=== PATIENT | female | born 1955 | race Caucasian/White ===

== ENCOUNTER 2020-11-19 09:37 | Outpatient (REF) | payer MEDICARE, SELFPAY ==
--- NOTE | ~2020-11-19 | US_ITS ---
EXAMINATION: US ABDOMEN COMPLETE CLINICAL INFORMATION: Right upper quadrant pain.?gallstone. COMPARISON: None TECHNIQUE: Real-time imaging of the abdominal viscera. FINDINGS: PANCREAS: The head and body the pancreas are normal. The tail is not well visualized due to bowel gas. ABDOMINAL AORTA: The proximal, mid, and distal segments are normal in caliber. INFERIOR VENA CAVA: Visualized portions are normal. LIVER: The liver is normal in size. The liver contour is normal. Liver echotexture may be slightly increased. No focal hepatic lesion. There is no intrahepatic biliary duct dilatation seen. GALLBLADDER: The gallbladder is physiologically distended without evidence of stones, polyps, wall thickening or pericholecystic fluid. COMMON BILE DUCT: Normal in caliber measuring 0.6 cm in diameter. RIGHT KIDNEY: Normal. No hydronephrosis. No renal calculi or focal parenchymal lesions. The kidney measures 10.0 cm in maximum dimension. LEFT KIDNEY: Normal. No hydronephrosis. No renal calculi or focal parenchymal lesions. The kidney measures 10.2 cm in maximum dimension. SPLEEN: Normal. The spleen measures 8.6 cm in maximum dimension. FREE FLUID: None. US/US abdomen complete IMPRESSION: Normal-appearing gallbladder. No gallstone seen. Question slightly echogenic liver. Limited visualization of the tail of the pancreas.
[2020-11-19 10:29] LABS: MANUAL DIFF FLAG NO
[2020-11-19 10:40] LABS: Basophils Percent Auto 0.5 % (0-2); Eosinophils Absolute Auto 0.7 X10*3/uL (0.0-0.4); Eosinophils Percent Auto 9.5 % (0-4); Hematocrit 40.2 % (37-47); Hemoglobin 13.4 g/dl (12.0-16.0); Imm Gran Abs Auto 0.04 X10*3/uL (0.00-0.03); Imm Gran Pct Auto 0.5 % (0.0-0.4); Lymphocytes Absolute Auto 2.4 X10*3/uL (1.2-4.9); Lymphocytes Percent Auto 31.3 % (20-40); Mean Corpuscular HGB Conc 33.3 g/dl (31.0-35.0); Mean Corpuscular Hemoglobin 33.3 pg (27.0-33.0); Mean Platelet Volume 9.6 fL (9.4-12.3); Monocytes Absolute Auto 0.5 X10*3/uL (0.1-1.2); Monocytes Percent Auto 6.4 % (2-11); Neutrophils Percent Auto 51.8 % (45-73); Platelet Count 283 X10*3/uL (160-400); Red Blood Count 4.02 X10*6/uL (4.20-5.50); White Blood Count 7.7 X10*3/uL (4.8-10.8)
[2020-11-19 11:21] LABS: Alanine Aminotransferase 18 U/L (0-31); Albumin Level 4.2 g/dL (3.5-5.0); Alkaline Phosphatase 71 U/L (39-117); Anion Gap 10 (12-20); Aspartate Amino Transferase 19 U/L (5-31); Bilirubin Total 0.5 mg/dL (0.0-1.0); Blood Urea Nitrogen 9 mg/dL (9-16); Calcium 8.8 mg/dL (8.4-10.2); Carbon Dioxide 28 mmol/L (22-29); Chloride 108 mmol/L (96-108); Cholesterol 238 mg/dL; Estimated Glomerular Filt Rate > 60; Gamma Glutamyl Transpeptidase 22 U/L (7-33); Glucose Fasting 89 mg/dL (60-99); HDL Cholesterol 81 mg/dL; LDL Cholesterol Calculated 128 mg/dl; Potassium 4.5 mmol/L (3.3-5.1); Sodium 141 mmol/L (135-145); Total Protein 7.2 g/dL (6.5-8.0); Triglycerides 145 mg/dL
[2020-11-19 11:28] LABS: Erythrocyte Sedimentation Rate 25 MM/HR (0-20)
== END 2020-11-19 09:38 | disposition home or self-care (01) ==
LOC: HO.US 09:37
PROVIDERS: Visit Provider Internal Medicine Medical Oncology
DX: R10.11 Right upper quadrant pain (principal)
CPT/HCPCS: 36415; 76700; 80053; 80061; 82977; 85025; 85652

== ENCOUNTER 2022-09-14 14:53 | Outpatient (REF) | payer MEDICARE, SELFPAY ==
--- NOTE | ~2022-09-14 | XR_ITS ---
EXAMINATION: XR SINUSES CLINICAL INFORMATION: Sinusitis COMPARISON: None TECHNIQUE: 3 views of the sinuses were obtained. FINDINGS: The paranasal sinuses are well-developed. No air-fluid levels. No radiographic evidence of acute sinusitis. There appears to be mild asymmetric opacity from mucosal thickening of the left lateral maxillary sinus. Otherwise, the paranasal sinuses are unremarkable. The mastoid air cells are well aerated. The calvarium is normal. XR/XR sinus min 3V IMPRESSION: There is likely mucosal thickening along the lateral wall of the left maxillary sinus. However, no air-fluid levels within the paranasal sinuses. No radiographic findings of acute sinusitis.
== END 2022-09-14 14:54 | disposition home or self-care (01) ==
LOC: HO.XRAY 14:53
PROVIDERS: PCP Internal Medicine Medical Oncology; Visit Provider Otolaryngology
DX: J32.9 Chronic sinusitis, unspecified (principal)
CPT/HCPCS: 70220

== ENCOUNTER 2024-11-28 11:51 | Outpatient (REF) | payer MEDICARE, SELFPAY ==
[2024-11-28 12:10] LABS: MANUAL DIFF FLAG NO
[2024-11-28 12:34] LABS: Basophils Absolute Auto 0.1 X10*3/uL (0.0-0.2); Basophils Percent Auto 0.8 % (0-2); Eosinophils Absolute Auto 0.3 X10*3/uL (0.0-0.4); Eosinophils Percent Auto 3.9 % (0-4); Hematocrit 42.8 % (37.0-47.0); Hemoglobin 14.8 g/dl (12.0-16.0); Imm Gran Abs Auto 0.08 X10*3/uL (0.00-0.03); Imm Gran Pct Auto 1.1 % (0.0-0.4); Lymphocytes Absolute Auto 1.6 X10*3/uL (1.2-4.9); Mean Corpuscular HGB Conc 34.6 g/dl (31.0-35.0); Mean Corpuscular Hemoglobin 36.4 pg (27.0-33.0); Mean Corpuscular Volume 105.2 fL (80.0-98.0); Mean Platelet Volume 9.3 fL (9.4-12.3); Monocytes Absolute Auto 0.5 X10*3/uL (0.1-1.2); Monocytes Percent Auto 6.3 % (2-11); Neutrophils Absolute Auto 4.7 x10*3/uL (2.0-8.3); Neutrophils Percent Auto 65.9 % (45-73); Platelet Count 209 X10*3/uL (160-400); Red Blood Count 4.07 X10*6/uL (4.20-5.50); Red Cell Distribution Width 13.2 % (11.0-16.0); White Blood Count 7.2 X10*3/uL (4.8-10.8)
[2024-11-28 13:04] LABS: Alanine Aminotransferase 56 U/L (0-31); Albumin Level 4.3 g/dL (3.5-5.0); Alkaline Phosphatase 81 U/L (39-117); Anion Gap 15 (12-20); Aspartate Amino Transferase 83 U/L (5-31); Bilirubin Total 0.8 mg/dL (0.0-1.0); Blood Urea Nitrogen 6 mg/dL (9-16); Calcium 9.8 mg/dL (8.4-10.2); Carbon Dioxide 28 mmol/L (22-29); Chloride 100 mmol/L (96-108); Cholesterol 237 mg/dL (<200); Estimated Glomerular Filt Rate > 60; Glucose Fasting 98 mg/dL (60-99); HDL Cholesterol 109 mg/dL (>40); LDL Cholesterol Calculated 112 mg/dL (<100); Potassium 4.7 mmol/L (3.3-5.1); Sodium 138 mmol/L (135-145); Total Protein 8.4 g/dL (6.5-8.0); Triglycerides 81 mg/dL (<150)
--- OUTSIDE RECORDS SUMMARY | 2024-11-28 14:57 | XMS_ITS ---
Author Organization [facility] Address [address] [place] [address] Care Team Providers Care Director Of Investigations Name Role Phone Shabbir Smith MD Primary Care Provider Unavailab Bettie Coello Unavailable [phone] Aguila Saenz Unavailable [phone] Allergies Allergen (clinical drug ingredient) Drug/Non Drug Allergy documented on EMR Reaction Allergy Type Onset Date Status aspirin Aspirin Unknown Drug Allergy Active REASON FOR VISIT Painful Toe(s), Open sore, Skin problem(s) Medications Medication SIG (Take, Route, Frequency, Duration) Notes Start Date End Date Status Iodosorb 0.9 % as directed External ly Apply to ulceration daily with dry sterile dressing for 30 days 09/15/2023 Active Cephalexin 500 MG 1 capsule Orally kaley ry 8 hrs for 10 days Active Feldene 20 MG 1 capsule with food Orally Once a day for 30 day(s) 12/01/2020 Not-Taking Ciclopirox Olamine 0.77 % 1 application to affected area Externally to feet Twice a day for 30 days Active Fluticasone Propionate 50 MCG/ACT Nasal for 60 Active Albuterol Sulfate HFA 108 (90 Base) MCG/ACT Inhalation for 28 A ctive Social History Tobacco Use: Social History Observation Description Date Details (start date - stop date) Former Smoker NA - NA Tobacco Use/Smoking Question Answer Notes Are you a: former smoker Additional Findings: Tobacco Non-User Current no n-smoker Alcohol Screen Question Answer Notes Did you have a drink contain ing alcohol in the past year? Yes How often did you have a dri nk containing alcohol in the past year? Monthly or less (1 point) How often did you have 6 or more drinks on one occasion in the past year? Less than monthly (1 point) Points 2 Interpretation Negative Tobacco use other than smoking: Question Answer Notes Are you an other tobacco user? 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) Active confirmed Response to treatment Vital Signs Height 5ft in 09/15/2023 Weight 138 lbs 09/15/2023 BMI 26.95 kg/m2 09/15/2023 Procedures Procedure Date Ordered Date Performed Result Body Sit e 51173-CYCTUHL SKIN/TISSUE 09/15/2023 N/A Encounters Encounter Location Date Provider Diagnosis [facility] [address] [address] 09/15/2023 Aguila Letty Pain in left toe(s) M79.675 ; Other hammer toe(s) (acquired), left foot M20.42 ; Arthritis of joint of lesser toe, left M19.072 ; 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 L97.522 and Cellulitis of toe of left foot L03.032 Assessments Encounter Date Diagnosis (ICD Code) Assessment Notes Treatment Notes Treatment Clinical Notes Section Notes 09/15/2023 Pain in left toe(s) (ICD-10 - M79.675) 09/15/2023 Other hammer toe(s) (acquired), left foot (ICD-10 - M20.42) 09/15/2023 Arthritis of joint of lesser toe, left (ICD-10 - M19.072) 09/15/2023 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 (ICD-10 - L97.522) Patient Educated with: WOUND CARE INSTRUCTIONS.p df (WOUND CARE INSTRUCTIONS.p df) 09/15/2023 Cellulitis of toe of left foot (ICD-10 - L03.032) Plan Of Treatment Medication Medication Name Sig Start Date Stop Date Notes Iodosorb 0.9 % as directed External ly Apply to ulceration daily with dry sterile dressing for 30 days 09/15/2023 Cephalexin 500 MG 1 capsule Orally every 8 hrs for 10 days Treatment Notes Assessment Notes 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 Patient Educated with: WOUND CARE INSTRUCTIONS.pdf (WOUND CARE INSTRUCTIONS.pdf) Pending Test Test Name Order Date X ray : Foot, left 3V 09/15/2023 23092-[id number] SKIN/TISSUE 09/15/2023 Next Appt Details Follow Up: prn, Reason: Procedure Notes * Category Sub-Category Detail Notes Debride skin and subQ Open wound ISCHEMIC: Physician of record performed open wound selective debridement of devitalized necrotic/nonviable soft tissue, fibrin, exudate, epidermis, dermis, thru skin and subcutaneous fat tissue, first 20 sq cm or less, using sharp dissection with sterile 15 blade, and/or tissue nippers. ANESTHESIA was accomplished TOPICALLY with Lidocaine Hydrochloride Jelly 2 percent, Sterile antibiotic dressing applied. Hemostasis was controlled through direct pressure. Post debridement measurements: 5mm x 5mm x 3mm. Character of the wound post debriement is stable (90144) Progress Notes * JASCAClemencia Val ADOB: (68 yo F)Acc No.[id number]:09/15/2023 Progress Note Patient:?Val Hickey Provider:?Aguila Saenz DPM :1955???Age:68 Y???Sex:Female D ate:09/15/2023 Address:[address] [place], [place] [address], [place], [place] Pcp:Shabbir Smith MD Subjective: * Chief Complaints: * ???Painful Toe(s)Open soreSk in problem(s) * HPI: ???Toe pain:?Nature:?tenderness.?Location:?Left foot , 4th toe , 5th toe.?Duration:?a year or more.?Course:?worse.?Aggrevated by:?any pressure, shoes.?Treatments:?rest/alter normal daily activity, change in shoes , bracing/splinting/padding , medication ( Ciclopirox ).?Skin problems:?Treatments:?medication ( Ciclopirox).?Possible Infection:?Nature:?redness , swelling.?Location:?5th toe , Left foot.?Duration:?several days.?Course:?worse.?Treatments:?none.? * ROS:?General/Constitutional:?Nausea?denies.?Vomiting?denies.?Hunger Thirst?denies.?Loss appetite?denies.?Chills?denies.?Fatigue?denies.?Fever?denies.?Night Sweats?denies.?Unexplained weight loss?denies.?Unexplained weight gain?denies.?HEENTM:?Dentures?denies.?Dizziness?denies.?Glasses/contacts?admits.?Retinopathy?de nies.?Blurred/double vision?denies.?TMJ?denies.?Discharge/drainage?denies.?Implants?denies.?Sore throat?denies.?Dental implants?denies.?Hard of hearing ?denies.?Difficulty chewing/swallowing/speaking?denies.?Nose bleeds?denies.?Sore mouth?denies.?Respiratory:?On Oxygen?denies.?Pneumonia/pleurisy?denies.?Bronchitis?denies.?Emphysema?denies.?C oughing?denies.?Cough blood?denies.?Shortness of breath?denies.?Wheezing?denies.?Cardiovascular:?Pacemaker?denies.?MVP?denies.?WPW?denies.?CHF?denies.?Heart attack?denies.?Septal defect?denies.?Rapid beat?denies.?Chest pain ?denies.?Atrial Fib.?denies.?Murmur/Palpitations?denies.?Gastrointestinal:?Hemorrhoids?denies.?Stomach/Abdominal pain?denies.?Dark blood stool?denies.?Irritable bowel ?denies.?Constipation?denies.?Diarrhea?denies.?Hematology:?Swelling?denies.?Clots?denies.?Varicose Veins?denies.?Bruising?denies.?Bleeding problem?denies.?Genitourinary:?Blood urine?denies.?Frequent/Painfu/urination/bladder control?denies.?Kidney stones?denies.?Infection (UTI)?denies.?Nephropathy?denies.?sex trans dis (STD)?denies.?Prostate?denies.?Musculoskeletal:?Hammertoes?admits.?Bunions?denies.?Back Pain?denies.?Muscle Cramps/ Resting?denies.?Muscle cramps / walking?denies.?Generalized aches and pains?denies.?Weakness?denies.?Integ.:?Ortiz?denies.?Scars?denies.?Corns/calluses?denies.?Ingrown nails?denies.?Painful nails?denies.?Open Sores?admits.?Rashes?denies.?Neurologic:?Difficulty sleeping?denies.?Brain disorder?denies.?Numbness?denies.?Balance trouble?denies.?Confusion?denies.?Fainting/blackouts?denies.?Tingling?denies.?Tr emors?denies.? * Medical History:? * Surgical History:? 11.21.85,03.29.89 * Hospitalization/Major Diagno stic Procedure:?No Hospitalization History. * Family History:?Mother: aliquentin e.?Father: .? * Social History:?Tobacco Use:?Tobacco Use/Smoking?Are you a:?former smoker ?Additional Findings: Tobacco Non-User?Current non-smoker ?Tobacco use other than smoking?Are you an other tobacco user??Yes Vape ???Drugs/Alcohol:?Drugs?Have you used drugs other than those for medical reasons in the past 12 months??Yes ?Marijuana??Yes ?Alcohol Screen?Did you have a drink containing alcohol in the past year??Yes ?How often did you have a drink containing alcohol in the past year??Monthly or less (1 point) ?How often did you have 6 or more drinks on one occasion in the past year??Less than monthly (1 point) ?Points?2 ?Interpretation?Negative ???Miscellaneous:?no Caffeine. ?Children: yes, 2. ?Exercise: yes, yoga, Babysitting. ?Marital status: . ?Occupation: Retired- [employer]/ [employer]. * Medications:?TakingAlbuterol Sulfate HFA 108 (90 Base) MCG/ACT Aerosol Solution Inhalation Fluticasone Propionate 50 MCG/ACT Suspension Nasal Ciclopirox Olamine 0.77 % Cream 1 application to affected area Externally to feet Twice a dayTaking Albuterol Sulfate HFA 108 (90 Base) MCG/ACT Aerosol Solution Inhalation Taking Fluticasone Propionate 50 MCG/ACT Suspension Nasal Taking Ciclopirox Olamine 0.77 % Cream 1 application to affected area Externally to feet Twice a dayNot-Taking/PRNFeldene 20 MG Capsule 1 capsule with food Orally Once a dayMedication List reviewed and reconciled with the patientNot-Taking/PRN Feldene 20 MG Capsule 1 capsule with food Orally Once a dayMedication List reviewed and reconciled with the patient * Allergies:?Aspirinyes[Allerg ies Verified] Objective: * Vitals:?Ht: 5ft, Wt:138, BMI :26.95, Shoe size: 7, Ht-cm: 152.4 cm, Wt-k.6 kg. * Examination: ???Orthopedic: ?MUSCLE STRENGTH:?5/5 all groups in a symmetrical fashion , B/L.?DIGITAL DEFORMITIES:?Digital contracture, PIPJ, 2-5 B/L, incompl-reducible with WB, or to push-up test, no over, nor underlapping , Reveals pain to palpation, T3, T4.?FOOTWEAR:? shoe gear properties exacerbate patients foot/toe deformity.?X-Rays - IMAGING REPORT: ?Clinical Indication(s):? Evaluate Biomechanical Deformity.?Views:? 3 views of Foot, AP, LO, MO, LEFT.?Findings:? normal bone and soft tissue density consistent for patients age and sex.?Digits:? show asymmetrical joint space narrowing at the PIPJ consistent with clinical finding of hammertoe deformity, show synostosis at the DIPJ.?Fracture:? Negative fractures identified.?Signs of Osteomyelitis?Absent.?Dermatologic: ?SKIN FINDINGS:? Skin shows sign(s) of, localized cellulitis without lymphangitis extending proximally to the level of the MPJ, T4 , Skin exam reveals normal texture, elasticity, and turgor. There are no masses.?ULCER:? LOCATION, LEFT, Medial, T4, SIZE, 5mm X 5mm X 3mm, BASE, fibro-granular, RIM, hyperkeratotic, UNDERMINING, mild, TRACKING, Sub Q with Fat layer exposed, DRAINAGE, serosanguineous, moderate, NECROTIC TISSUE, loosely-adherent, yellow slough, MALODOR, absent, CALOR, PREsent, ERYTHEMA, PREsent.?Vascular: ?DP PULSES:?2/4, B/L.?PT PULSES:?2/4, B/L.?CAPILLARY FILL TIME:?immediate, all digits, B/L.?SKIN TEMPERTURE GRADIENT OF THE LOWER EXTERMITIES:?warm to cool, proximal to distal, B/L.?HAIR GROWTH/TEXTURE/ELASTICITY/TURGOR:?normal, B/L.?PIGMENTATION:?normal, B/L.?EDEMA:?absent, B/L.?Neurological: ?SENSORY:?Neurological exam reveals intact sensorium, pain sensation normal, vibration sensation intact, pinprick sensation is normal in the lower extremities, Pt denies, anesthesia, burning, paresthesia, tingling, B/L.?DEEP TENDON REFLEXES:?Achilles, 2, B/L.?General Examination: ?GENERAL APPEARANCE:?Reveals a pleasant, alert, well-nourished, well- developed, well hydrated individual, who demonstrates proper attention to hygiene/body habitus, and is in no acute distress, Pt serves as own?historian for office visit today.?ORIENTED:?person, place, and time.? Assessment: * Assessment: 1.?Pain in left toe(s) - M79 .675 (Primary)?2.?Other hammer toe(s) (acquired), left foot - M20.42, Chronic problem, Worse (4)?3.?Arthritis of joint of lesser toe, left - M19.072?4.?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 - L97.522?5.?Cellulitis of toe of left foot - L03.032, Acute problem, Complicated w/ Multiple Tx Options(4),Dx New problem, Prognosis Uncertain (4),Rx Management (4)? Plan: * Treatment: 2.?Ischemic ulcer of left fo ot with fat layer exposed? Start Iodosorb Gel, 0.9 %, as directed, Externally, Apply to ulceration daily with dry sterile dressing, 30 days, 40, Refills 3.?Procedure: [id number] SKIN/TISSUE Notes: Patient Educated with: WOUND CARE INSTRUCTIONS.pdf (WOUND CARE INSTRUCTIONS.pdf)?? 3.?Cellulitis of toe of left foot? Start Cephalexin Capsule, 500 MG, 1 capsule, Orally, every 8 hrs, 10 days, 30 Capsule, Refills 0.?? * Procedures:?Debride skin and subQ:?Open wound?ISCHEMIC: Physician of record performed open wound selective debridement of devitalized necrotic/nonviable soft tissue, fibrin, exudate, epidermis, dermis, thru skin and subcutaneous fat tissue, first 20 sq cm or less, using sharp dissection with sterile 15 blade, and/or tissue nippers. ANESTHESIA was accomplished TOPICALLY with Lidocaine Hydrochloride Jelly 2 percent, Sterile antibiotic dressing applied. Hemostasis was controlled through direct pressure. Post debridement measurements: 5mm x 5mm x 3mm. Character of the wound post debriement is stable (27863).? * Procedure Codes:?10782 DEBRI DE SKIN/[id number] X-RAY EXAM OF LEFT FOOT 3V, Modifiers: 26 , LT * Preventive Medicine:? ??Counseling:?Discussion:?-14: Office or other outpatient visit for the evaluation and management of an established patient, which required a medically appropriate history and/or examination and MODERATE level of DECISION MAKING for: 1 OR MORE CHRONIC PROBLEM(S) THATS WORSENING, 2 STABLE CHRONIC PROBLEMS, A NEWLY DIAGNOSED PROBLEM WITH UNCERTAIN PROGNOSIS, AN ACUTE COMPLICATED INJURY WITH MULTIPLE TREATMENT OPTIONS, OR AN ACUTE PROBLEM WITH ACCOMPANYING SYSTEMIC SYMPTOMS, THAT POSE(S) A MODERATE RISK OF MORBIDITY. THIS CONDITION MAY ALSO INCLUDE RX DRUG MANAGEMENT, OR A DECISON FOR MINOR SURGERY. The visit on the day of the encounter encompassed interpreting the data and educating the patient as to the nature of their condition, treatment options available according to their individual PMH, meds, allergies, and overall health/living conditions, as well as any potential risks or complications that may occur from a failure to adhere to, and participate in, the recommended course of therapy. The discussion included a complete verbal, and/or written explanation of the examination results, any x-rays taken, the proposed diagnosis, and outline of the treatment plan. A schedule for future care needs was also explained. The patient verbalized an understanding of the instructions at this time and agreed to be an active participant in their treatment. If the patient should think of any questions or concerns after the visit, I have encouraged the patient to call the office.?Consult:?The Pt. was counseled on the diagnosis, treatment options, and the need for a, Podiatry Surgical Consult for Hammertoe correction, Left foot, Pt indicated understanding the recommendations and accepts this treatment plan. The patient would like to make their appt themself.?Cellulitis/Lymphangitis?The Pt. was counseled on the diagnosis, etiology, treatment options, and importance for adherence to recommendations regarding the treatment for Cellulitis. Abx were Rxed to address the cellulitis. The advantages and disadvantages of an antibiotic medication, along with its side effects, were discussed with the patient to their comprehended satisfaction. Patient questions re: use, dosage, and possible pharmacutical interactions were reviewed and the answers clearly understood. If the condition should worsen while taking the antibiotics as directed, it was recommeded that the patient call the office immediately or seek emergency medical care. The patient verbally confirmed a full understanding of the above information.?Digital Surgery:?Digital surgery was discussed with the patient, including the risks of surgery(below), vs not having surgery (persistent pain, deformity, risk for skin ulceration/infection, loss of toe), the potential surg complications, the anesthesia, and the usual post-op course. No guarentees were given. We discussed the potential procedure complications including, but not limited to: pain, swelling, bleeding, scarring, numbness, infection, delayed/non healing, floppy/unstable/shorthened toe, recurrence, failure of the procedure, overcorrection leading to plantarflexed/downward positioned toe, recurrence, need for further surgery, as well as the possibility for loss of the toe itself. We discussed the use of local anesthesia, and the usual post-op course for healing. No guarentees were given. The patient verbally indicated a full understanding of the above conversation, and any other of their questions were answered to their satisfaction. Alternatives to the procedure were also discussed, including conservative care. I also discussed the usual post-operative course and gave no guarantees regarding outcome, I discussed surgery for a hammertoe by digital arthroplasty and neighboring condylectomy.?Digital Treatment:?I explained to the patient the possible etiologies of Hammertoes, including genetics/foot type/shoegear/activity level/exercise routine and the risks/benefits of all the different treatment options for their pain including: No treatment at all, Rest, Ice, New/supportive/wider/deeper Shoegear, Digital Padding/Strapping/Taping/Bracing/Gel protective sleeves, Foot/Ankle AFO Bracing, Stretching exercises, Deep Tissue Massage, Arch support/shoe inserts with splay metatarsal padding, and Custom orthoses. I insisted that any digital devices be removed daily and not worn overnight for safety. The patient is to carefully examine the toes daily for any skin irritation while using any splinting or padding device. The advantages and disadvantages of each option were discussed and the patients questions re: shoegear, padding, custom vs prefabricated inserts, activity level, and consistency in home treatment regimens for optimal success were answered to their verbally confirmed satisfaction.?Shoe Gear Counseling:?The patient and I reviewed the types of shoes they should be wearing. My recommendation included obtaining a well-fitted shoe with a good supportive, non-foldable nor twistable sole, plenty of toe/room for the forefoot, and proper arch support. Based on todays examination, I recommended the patient look for new shoes, by having their feet professionally measured. We discussed that generally the best time of the day for a shoe fitting is the afternoon. Different shoes types and brands to best match the patients occupation and vocation were discussed. Specific brand selection will be up to the patient, their individual foot condition/deformities, and fit. The patient and I reviewed the standard new shoe break in period by wearing them for a few hours a day while checking for redness or sores as wear time is increased. The patient verbally confirmed to understanding the information discussed.?Ulcer:?A detailed plan of care was reviewed with the patient. We emphasized the fact that the patient takes on an active participating role in the treatment process and emphasized to them that they are an included, valued, and important member of the wound healing team in order to reach an expedient successful outcome. The patient agreed to follow their medically recommended diet while increasing their protein intake if safely able to do so, maintain proper bodily hydaration, abide by weight-bearing restrictions at all times, quit all current smoking habits if any, and diligently follow any/all dressing change instructions. It was clearly made known to the patient that if they fail to do their part, they will likely extend their course of treatment as well as possibly increase their risk of adverse events including amputation. The patient was instructed on importance of proper wound care consisting of pressure reduction, and proper maintainance of a moist wound environment. The patient is to cleanse the wound with warm soapy water/peroxide/saline, or betadine BID based on product availability. The patient is to apply ( Rx Iodosorb gel, ) Antibiotic to the wound and cover with a DSD as directed. The patient was instructed to change dressings according to orders, or PRN saturation, leaks. The patient was instructed to monitor and report any signs or symptoms of infection or any untoward reactions. Precautions Taken: Offloading/Pressure reduction via rest/ limited activity to essential to daily life only, cane, shoe modification, accommodative padding, sharp debridement, and take/apply medication as directed, Debridement frequency as indicated.? * Follow Up:?prn * Images: * Sign off status: Completed true * Provider:Clarence Saenz DPM Date:?2022 Generated for Leelee thomas/María Elena/Deshawn on:?11/28/2024 02:57 PM EST History and Physical Notes * HPI (History of Present Illness) Category Sub-Category Detail Notes Category Not es Toe pain Nature: tenderness Location: Left foot , 4th toe , 5th toe Duration: a year or more Course: worse Aggravated by: any pressure, shoes Treatments: rest/alter normal da colleen activity, change in shoes , bracing/splinting/padding , medication ( Ciclopirox ) Skin problems Treatments: medication ( Ciclopirox) Possible Infection Location: 5th toe , Left foot Duration: several days Nature: redness , swelling Course: worse Treatments: none Examination Category Sub-Category Detail Notes Category Not es Neurological SENSORY: Neurological exa m reveals intact sensorium, pain sensation normal, vibration sensation intact, pinprick sensation is normal in the lower extremities, Pt denies, anesthesia, burning, paresthesia, tingling, B/L DEEP TENDON REFLEXES: Achilles, 2/4, B/L Dermatologic SKIN FINDINGS: Skin shows sign( s) of, localized cellulitis without lymphangitis extending proximally to the level of the MPJ, T4 , Skin exam reveals normal texture, elasticity, and turgor. There are no masses ULCER: LOCATION, LEFT, Medi al, T4, SIZE, 5mm X 5mm X 3mm, BASE, fibro-granular, RIM, hyperkeratotic, UNDERMINING, mild, TRACKING, Sub Q with Fat layer exposed, DRAINAGE, serosanguineous, moderate, NECROTIC TISSUE, loosely-adherent, yellow slough, MALODOR, absent, CALOR, PREsent, ERYTHEMA, PREsent Orthopedic FOOTWEAR: shoe gear proper ties exacerbate patients foot/toe deformity DIGITAL DEFORMITIES: Digital contracture , PIPJ, 2-5 B/L, incompl-reducible with WB, or to push-up test, no over, nor underlapping , Reveals pain to palpation, T3, T4 MUSCLE STRENGTH: 5/5 all groups in a symmetrical fashion , B/L General Examination GENERAL APPEARANCE: Reveals a pleasant, alert, well- nourished, well-developed, well hydrated individual, who demonstrates proper attention to hygiene/body habitus, and is in no acute distress, Pt serves as own historian for office visit today ORIENTED: person, place, and t esther Vascular DP PULSES (B): 2/4, B/L PT PULSES (B): 2/4, B/L CAPILLARY FILL TIME: immediate, all digi ts, B/L TEMPERTURE GRADIENT (C): warm to cool, p roximal to distal, B/L TROPHIC CONDITION-TEXTURE/ELASTICITY/TURGOR/HAIR GROWTH (B): normal, B/L EDEMA (C): absent, B/L PIGMENTATION: normal, B/L X-Rays - IMAGING REPORT Findings: normal b one and soft tissue density consistent for patients age and sex Fracture: Negative fractures i dentified Signs of Osteomyelitis Absent Digits: show asymmetrical eduin int space narrowing at the PIPJ consistent with clinical finding of hammertoe deformity, show synostosis at the DIPJ Views: 3 views of Foot, AP, LO, MO, LEFT Clinical Indication(s): Evaluate Biomech anical Deformity
--- OUTSIDE RECORDS SUMMARY | 2024-11-28 14:57 | XMS_ITS | Patient Health Record ---
[facility] Address [address] [place] [place] [address] Care Team Providers Care Miller Wood Flour Name Role Phone Shabbir Smith MD Primary Care Provider Unavailab Bettie Coello Unavailable [phone] Allergies Allergen (clinical drug ingredient) Drug/Non Drug Allergy documented on EMR Reaction Allergy Type Onset Date Status aspirin Aspirin Unknown Drug Allergy Active Reason For Referral No Information Medications Medication SIG (Take, Route, Frequency, Duration) Notes Start Date End Date Status Feldene 20 MG 1 capsule with food Orally Once a day for 30 day(s) 12/01/2020 Not-Taking Albuterol Sulfate HFA 108 (90 Base) MCG/ACT Inhalation for 28 A ctive Cephalexin 500 MG 1 capsule Orally kaley ry 8 hrs for 10 days Not-Taking Iodosorb 0.9 % as directed External ly Apply to ulceration daily with dry sterile dressing for 30 days 09/15/2023 Active Fluticasone Propionate 50 MCG/ACT Nasal for 60 Active Ciclopirox Olamine 0.77 % 1 application to affected area Externally to feet Twice a day for 30 days Not-Taking Immunizations Vaccine Route Administration Date Status Comme nts COVID-19 Pfizer BioNTech Vaccine Unknown 12/03/2020 Administered Second Dose: 12/24/2020 Social History Tobacco Use: Social History Observation [...] Problem Acquired hammer toe of left foot (7969006518850701 ) Other hammer toe(s) (acquired), left foot (M20.42) Active confirmed Problem Localized, primary osteoarthritis of the ankle and/or foot (122446098) Arthritis of joint of lesser toe, left (M19.072) Active confirmed Problem 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) Active confirmed Response to treatment Plan Of Treatment Pending Test Test Name Order Date X ray : Foot, left 3V 02/09/2022 X ray : Foot, left 3V 09/15/2023 [id number] SKIN/TISSUE 09/15/2023 Insurance Providers Payer Name Payer Address Payer Phone Subscriber Number Group Number Insured Name Patient Relationship to Insured Coverage Start Date Coverage End Date [employer] [address] [place] [address] [phone] [id number] Val Hickey Self - patient is the insured Medical (General) History Medical History History ICD Code asthma Back,Hip,and Knee pain Hepatitis Measles Mumps Chicken pox Transfusions Surgical History Surgery Date(Month/Year) 2..86,6.89
== END 2024-11-28 11:52 | disposition home or self-care (01) ==
LOC: HO.LAB 11:51
PROVIDERS: PCP Internal Medicine Medical Oncology; Visit Provider Internal Medicine Medical Oncology
DX: E78.5 Hyperlipidemia, unspecified (principal); E66.3 Overweight
CPT/HCPCS: 36415; 80053; 80061; 85025

== ENCOUNTER 2025-09-08 22:58 | Emergency (ER) | payer MEDICARE, SELFPAY ==
[2025-09-08 23:01] VITALS: BP 174/84; PULSE 84; RESP 16; TEMP 36.4; O2SAT 94; BMI 27.1
--- NOTE | 2025-09-08 23:15 | ECG_ITS ---
Test Reason : LEFT HAND PAIN Blood Pressure : */* mmHG Vent. Rate : 81 BPM Atrial Rate : 81 BPM P-R Int : 176 ms QRS Dur : 86 ms QT Int : 396 ms P-R-T Axes : 24 -18 33 degrees QTcB Int : 460 ms Normal sinus rhythm Normal ECG When compared with ECG of 14-Apr-2015 18:18, T wave inversion now evident in Anterior leads QT has lengthened Referred By: Generic ED Physician Electronically Signed By: AMY RIVAS MD
[2025-09-08 23:38] LABS: MANUAL DIFF FLAG NO
[2025-09-08 23:40] LABS: Hematocrit 39.7 % (37.0-47.0); Hemoglobin 14.0 g/dl (12.0-16.0); Imm Gran Abs Auto 0.05 X10*3/uL (0.00-0.03); Imm Gran Pct Auto 0.5 % (0.0-0.4); Lymphocytes Absolute Auto 1.7 X10*3/uL (1.2-4.9); Mean Corpuscular HGB Conc 35.3 g/dl (31.0-35.0); Mean Corpuscular Hemoglobin 37.2 pg (27.0-33.0); Mean Corpuscular Volume 105.6 fL (80.0-98.0); NRBC Abs Auto 0.000 X10*3/uL (0.0-0.012); NRBC Pct Auto 0.0 /100WBC (0.0-0.2); Platelet Count 223 X10*3/uL (160-400); Red Blood Count 3.76 X10*6/uL (4.20-5.50); White Blood Count 9.1 X10*3/uL (4.8-10.8)
[2025-09-08 23:55] LABS: Anion Gap 18 (12-20); Blood Urea Nitrogen 9 mg/dL (9-16); Calcium 9.2 mg/dL (8.4-10.2); Carbon Dioxide 22 mmol/L (22-29); Chloride 102 mmol/L (96-108); Creatinine Clr Calc Pharmacy 75.7; Estimated Glomerular Filt Rate > 60; Potassium 3.9 mmol/L (3.3-5.1); Sodium 138 mmol/L (135-145)
--- OUTSIDE RECORDS SUMMARY | 2025-09-09 00:10 | XMS_ITS | Clinical Summary ---
Author Organization [address] Address [address] [place] [phone] Phone Care Team Providers Care Pharmacology Teacher Name Role Phone Shabbir Smith MD Primary Care Provider [phone] Allergies Active Allergy Reactions Criticality Noted Date Comments Animal Dander 08/20/2025 Aspirin Anaphylaxis,Wheezing High 03/10/2017 Codeine 01/29/2021 No reaction documented in transfer records Ibuprofen 01/29/2021 No reaction documented in transfer records Sertraline 08/20/2025 Streptomycin 01/29/2021 Medications albuterol HFA (PROAIR HFA ; PROVENTIL HFA ; VENTOLIN HFA) 90 mcg/actuation inhaler Inhale 2 puffs by mouth every 4 (four) hours if needed. 9 Active fluticasone propionate (FLONASE) 50 mcg/actuation nasal spray Administer 1 spray into each nostril 1 (one) time each day. Active Encounters Date Type Department Care Team Description 08/20/2025 Telephone Gastroenterology - [address] [place] [id number] Virgil Salinas MD from Last 3 Months Surgical History Surgery Date Site/Laterality Comments SECTION PROCEDURE: HISTORICAL DELIVERY TONSILLECTOMY PROCEDURE: HISTORICAL TONSILLECTOMY; COMMENT: and Adenoidectomy Medical History Medical History Date Comments Asthma DX:Asthma Hypertension 01/29/2021 DX:Hypertension Sciatica 01/29/2021 DX:Sciatica Bone spur of inferior portio n of calcaneus 01/29/2021 DX:Bone spur of inferior por tion of calcaneus Cholecystitis 01/29/2021 DX:Cholecystitis Environmental and seasonal allergies 04/26/2019 DX:Environmental and seasonal allergies Essential hypertension 01/29/2021 DX:Essent ial hypertension GERD (gastroesophageal reflu x disease) 04/26/2019 DX:GERD (gastroesophageal re flux disease) Hyperlipidemia 01/29/2021 DX:Hyperlipidemi a Osteoporosis 01/29/2021 DX:Osteoporosis Overweight (BMI 25.0-29.9) 04/26/2019 DX:Ov erweight (BMI 25.0-29.9) Plantar fasciitis 01/29/2021 DX:Plantar fas ciitis Generalized osteoarthritis DX:Ge neralized osteoarthritis History of hepatitis C virus infection 01/29/2021 DX:History of hepatitis C vi maurice infection Family History Medical History Relation Name Comments Other: Cardiac disease Father Asthm a Ovarian cancer Maternal Grandmother Relation Name Status Comments Father Maternal Grandmother Social History Tobacco Use Types Packs/Day Years Used Date Smoking Tobacco: Former Smokeless Tobacco: Never Alcohol Use Standard Drinks/Week Comments Yes 0 (1 standard drink = 0.6 oz pur e alcohol) Comments Unknown Sex and Gender Information Value Date Recorded Sex Assigned at Not on file Legal Sex Female 7:39 AM EST Gender Identity Not on file Sexual Orientation Not on file Plan of Treatment Health Maintenance Due Date Last Done Comments Breast Cancer Screening 1955 Colorectal Cancer Screening: Colonoscopy 1955 DTaP,Tdap,and Td Vaccines (1 - Tdap) 1973 Pneumococcal Vaccine: 50+ Ye ars (1 of 2 - PCV) 1973 RSV Immunization Adult Patie nts (1 - Risk 50-74 years 1-dose series) 2004 Zoster Vaccines (1 of 2) 2004 Depression Screening 10/03/2024 COVID-19 Vaccine (1 - 2024-2 6 season) 2025 Influenza Vaccine (#1) 2025 Cholesterol Screening (Lipid Panel) 08/20/2025 Falls Risk Assessment 08/20/2025 Hepatitis C Screening 08/20/2025 Hypertension/CHF/CAD Annual BMP Blood Test 08/20/2025 Medicare Annual Wellness Visit 08/20/2025 Osteoporosis Screening (Bone Density Screening) 08/20/2025 Social Influencers of Health Screening 08/20/2025 HIB Vaccines Aged Out No longer eligi ble based on patient's age to complete this topic HPV Vaccines Aged Out No longer eligi ble based on patient's age to complete this topic Hepatitis A Vaccines Aged Out No long er eligible based on patient's age to complete this topic Hepatitis B Vaccines Aged Out No long er eligible based on patient's age to complete this topic IPV Vaccines Aged Out No longer eligi ble based on patient's age to complete this topic MMR Vaccines Aged Out No longer eligi ble based on patient's age to complete this topic Meningococcal ACWY Vaccine Aged Out N o longer eligible based on patient's age to complete this topic Meningococcal B Vaccine Aged Out No l onger eligible based on patient's age to complete this topic RSV Immunization Patients Un diego 20 months Aged Out No longer eligible b ased on patient's age to complete this topic Varicella Vaccines Aged Out No longer eligible based on patient's age to complete this topic Insurance [employer] MED[employer]ARE [employer]VANTAGE Care Teams Pharmacology Teacher Relationship Specialty Start Date End Date Shabbir Smith MD [address] [facility] [address] [place] [id number] PCP - General Oncology 08/20/25
--- NOTE | 2025-09-09 04:04 | PC.NURSE ---
Late entry of [id number]. Patient previously brought back to bed 6h where she was noted to be awake, alert, calm and cooperative, often times moaning out in discomfort and saying oh god and asking when she would be seen. the pt exhibited no s/s of distress during her stay in the hallway space. At one point her primary RN found her in the room of another patient's and kindly asked that she remain in her own care space and not enter rooms of other patients. The pt was visibly upset and stated he asked me to car pick up driver his phone off the floor before returning back to her care space in 6h. The pt at no point and time appeared to display any s/s of respiratory distress, her gait was even and steady and she appeared to be mentating appropriately. At approx 0130, staff made this mud analysis well logging operator aware that the pt was trying to break down the door in an attempt to leave the ED. This RN went to the ED/Waiting room doors where the patient was noted to be standing with security, she was asked if she wanted to wait for a provider to see her regarding her hand at which time she replied No adding that she felt short of breath and need my inhaler which is in my car . The pt was speaking in full/complete sentences without resp distress noted. This RN offered to give this patient a breathing treatment at the bedside to which she again declined. This RN once again confirmed that the pt did not want to be seen and badged her out of the department as she ambulated out of the department with even and steady gait and without any outward expressions of discomfort.
== END 2025-09-09 01:30 | disposition left against medical advice (07) ==
PROVIDERS: Emergency Provider Emergency Medicine; PCP Internal Medicine Medical Oncology
DX: M79.642 Pain in left hand (principal); Z53.21 Procedure and treatment not carried out due to patient leaving prior to being seen by health care provider
CPT/HCPCS: 36415; 80048; 85025; 93005; 99283

== ENCOUNTER → 2025-09-08 23:15 | Outpatient (BNV) | payer MEDICARE, SELFPAY | PROVIDERS: Emergency Provider Emergency Medicine; PCP Internal Medicine Medical Oncology; Visit Provider Internal Medicine Cardiovascular Disease | DX: M79.642 Pain in left hand (principal) | CPT/HCPCS: 93010 ==

== ENCOUNTER 2025-09-12 15:41 | Outpatient (REF) | payer MEDICARE, SELFPAY ==
--- NOTE | ~2025-09-12 | XR_ITS ---
CLINICAL HISTORY: PAIN LEFT HAND 3 view left hand Comparison: None provided Findings: No fractures or dislocations. Mild scattered degenerative changes mostly within the interphalangeal joints. There is also mild degenerative change at the 3rd metacarpophalangeal joint, and triscaphe joint. No erosions. No radiopaque foreign body. IMPRESSION: Scattered degenerative changes. No acute fracture. This document has been electronically signed by: Zackary Monroe MD on 09/12/2025 22:02:19
== END 2025-09-12 15:42 | disposition home or self-care (01) ==
LOC: HO.HMGCX 15:41
PROVIDERS: PCP Internal Medicine Medical Oncology; Visit Provider Physician Assistant Medical
DX: M79.642 Pain in left hand (principal)
CPT/HCPCS: 73130; 99212

== ENCOUNTER 2025-09-12 15:41 | Outpatient (AMB) | payer MEDICARE, SELFPAY ==
--- OUTSIDE RECORDS SUMMARY | 2024-04-19 09:58 | XMS_ITS ---
Author Organization Shabbir Smith III, MD Address [address] [place] [address] [place] [address] Care Team Providers Care To[employer] Games Hand Finisher Name Role Phone Dr. Shabbir Smtih III Primary Care Provider REASON FOR VISIT Mammo order Social History Sex Assigned At : Social History Observation Description Sex Assigned At Female Encounters Encounter Location Date Provider Diagnosis Shabbir Smith III, MD [address] [place] [address] [place] [address] 04/19/2024 Shabbir Smith Screening due Z13.9 Assessments Encounter Date Diagnosis (ICD Code) Assessment Notes Treatment Notes Treatment Clinical Notes 04/19/2024 Screening due (ICD-10 - Z13.9) Plan Of Treatment Pending Test Test Name Order Date MAMMOGRAM DIGITAL BILATERAL SCREEN 04/19 Next Appt Details Provider Name:Shabbir Smith , 02/14/2026 04:00:00 PM, [address] [place] [address] [place], [address], Provider Name:Shabbir Simth , 08/19/2026 04:00:00 PM, [address] [place] [address] [address], [place], [address], Progress Notes * Farzaneh HICKEYGenieB:1955 (69 yo F)Acc No.[id number]:04/19/2024 Patient: Val Cali :1955 A ge:69 Y S ex:Female Address:[address] [place] [address], [facility] , [place] [address] Subjective: * Chief Complaints: * M ammo order * Medical History: * Surgical History: * Hospitalization/Major Diagno stic Procedure: * Medications: Objective: Assessment: * Assessment: 1. S creening due - Z13.9 Plan: * Treatment: * Procedure Codes: * true * Date: Generated for Leelee thomas/María Elena/eTransmitting on: 11/13/2024 11:04 PM EST
--- OUTSIDE RECORDS SUMMARY | 2024-10-30 09:30 | XMS_ITS ---
Author Organization Shabbir Smith III, MD Address [address] [place] [address] Care Team Providers Care Acetylene Cylinder Packing Mixer Name Role Phone Dr. Shabbir Smith III Primary Care Provider [phone] Allergies Allergen (clinical drug ingredient) Drug/Non Drug Allergy documented on EMR Reaction Allergy Type Onset Date Status sertraline Sertraline Unknown Drug Allergy Activ e ibuprofen Ibuprofen Unknown Drug Allergy Active Codeine Phosphate Unknown Drug Allergy Active aspirin Aspirin Anaphylaxis-Stre ptomycin Drug Allergy Active Results Component Value Reference Range Notes MM tomosynthesis screening B I Reviewed date:11/10/2024 07:03:12 AM Interpretation: Performing Lab: Notes/Report: REASON FOR VISIT Intolerant of sertraline, Overdue for Annual CASUALTY UNDERWRITER, History of back pain, Allergies, Osteoporosis, Hyperlipidemia, Asthma Medications Medication SIG (Take, Route, Frequency, Duration) Notes Start Date End Date Status Erin Quigley - as directed PO use with inhaler as directed 03/22/2019 Active ProAir HFA 108 (90 Base) MCG/ACT INHALE 2 PUFFS BY MOUTH EVERY 4 HOURS FOR 28 DAYS Inhalation every 4 hrs Active Fluticasone Propionate 50 MCG/ACT INSTILL 1 SPRAY INTO EACH NOSTRIL ONCE DAILY 60 Active Metoprolol Tartrate 25 MG 1 tablet with food Orally once a day Active Ketoconazole 2 % 1 application Solar Installer ally twice a day for 21 days 10/30/2024 01/22/2025 Active Social History Tobacco Use: Social History Observation Description Date Details (start date - stop date) Former Smoker NA - NA Sex Assigned At : Social History Observation Description Sex Assigned At Female Tobacco Use/Smoking Question Answer Notes Patient is a former smoker How long has it been since you last smoked? 1-5 years Additional Findings: Tobacco Non-User Ex-cigaret te smoker Problems Problem Type SNOMED Code ICD Code Onset Dates Problem Status W/U Status Risk Notes Problem Age-related osteoporosis (210469618) Age-related osteoporosis without current pathological fracture (M81.0) Active confirmed She is known to have osteoporosis by bone density measurement.A bone density was ordered. By my office in [facility] of this year but the result is not available. Mammogram ordered the same date was done at [facility]. She will need a bone density. I referred her back to CASUALTY UNDERWRITER. She is not taking calcium but is taking vitamin D through a multiple vitamin. I recommended she take 500 mg of calcium carbonate twice a day and 1000 units of vitamin D3 once a day. A bone density has been ordered. She is a candidate for alendronate. Problem 081640882 Other low back pain (M54.59) Active confirmed Problem 492917106 Moderate persistent asthma, unspecified whether complicated (J45.40) Active confirmed She was not wheezing today. Her medication is up-to-date. Vital Signs Temperature 97.9 degrees Fahrenheit 10/30/19 25 Blood pressure systolic 140 mm Hg 10/30/19 25 Blood pressure diastolic 86 mm Hg 025 Heart Rate 93 /min 10/30/2024 Height 60 in 10/30/2024 Weight 130 lbs 10/30/2024 BMI 25.39 kg/m2 10/30/2024 Encounters Encounter Location Date Provider Diagnosis Shabbir Smith III, MD [address] [place] [address] [address] [place], [place] [address] 10/30/2024 Shabbir Smith Moderate persistent asthma, unspecified whether complicated J45.40 ; Age-related osteoporosis without current pathological fracture M81.0 ; Hyperlipidemia E78.5 ; Overweight E66.3 ; Encounter for screening mammogram for malignant neoplasm of breast Z12.31 ; Other low back pain M54.59 and Former smoker Z87.891 Assessments Encounter Date Diagnosis (ICD Code) Assessment Notes Treat ment Notes Treatment Clinical Notes 10/30/2024 Moderate persistent asthma, unspecified whether complicated (ICD-10 - J45.40) She was not wheezing today. Her medication is up-to-date. 10/30/2024 Age-related osteoporosis without current pathological fracture (ICD-10 - M81.0) She is due for a bone density examination, which we have ordered. She was instructed to take 500 mg of calcium twice a day as well as 1000 units of vitamin D. 10/30/2024 Hyperlipidemia (ICD-10 - E78.5) Comprehensive blood work with a fasting lipid profile has been ordered to be done in the near future. 10/30/2024 Overweight (ICD-10 - E66.3) She has lost substantial weight since her last visit over a year ago. She is only slightly overweight. We discussed her diet and nutrition. We made a plan to reduce her body mass index to the middle of the normal range. 10/30/2024 Encounter for screening mammogram for malignant neoplasm of breast (ICD-10 - Z12.31) An annual screening mammogram has been ordered. 10/30/2024 Other low back pain (ICD-10 - M54.59) 10/30/2024 Former smoker (ICD-1 0 - Z87.891) She is not currently smoking. We have discussed plans for prevention of relapse in times of stress and illness. Plan Of Treatment Medication Medication Name Sig Start Date Stop Date Notes Erin Quigley - as directed PO use with inhaler as directed 03/22/2019 ProAir HFA 108 (90 Base) MCG/ACT INHALE 2 PUFFS BY MOUTH EVERY 4 HOURS FOR 28 DAYS Inhalation every 4 hrs Fluticasone Propionate 50 MCG/ACT INSTILL 1 SPRAY INTO EACH NOSTRIL ONCE DAILY 60 Metoprolol Tartrate 25 MG 1 tablet with food Orally once a day Ketoconazole 2 % 1 application Solar Installer ally twice a day for 21 days 10/30/2024 01/22/2025 Pending Test Test Name Order Date PROFILE, FASTING (COMPREHENSIVE METABOLI C) 10/30/2024 BONE DENSITY DEXA 10/30/2024 CBC WITH AUTO DIFF 10/30/2024 Lipid Panel 10/30/2024 Next Appt Details Follow Up: 6 Weeks, Reason: Pre Op Clearance, Cataract Surgery Provider Name:Shabbir Michelne , 02/14/2026 04:00:00 PM, [address] [place] [address] [address], [place], [address], Provider Name:Shabbir Michelne , 08/19/2026 04:00:00 PM, [address] [place] [address] [address], [place], [address], Progress Notes * Farzaneh HICKEYGenieB:1955 (69 yo F)Acc No.[id number]:10/30/2024 Progress Notes Patient: Val LAWRENCE Provider: Dali Smith MD :1955 A ge:69 Y S ex:Female Date:10/30/2024 Address:[address] [place] [address], [address], [place] Subjective: * Chief Complaints: * I ntolerant of sertralineOverdue for Annual GYNHistory of back painAllergiesOsteoporosisHyperlipidemiaAsthma * HPI: C OVID-19 Screening: Questions H ave you had any new onset fever, chills, cough, congestion, sore throat, shortness of breath, muscle aches? 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 The patient also reported experiencing unpleasant side effects from Sertraline, which led her to switch to Zoloft. She also mentioned having urinary incontinence and needing to wear a pad all the time. The patient also reported having cataracts and is scheduled for LASIK surgery. She is going to have comprehensive blood work and a bone density test. She was referred to CASUALTY UNDERWRITER. X-rays off her back were ordered. A followup visit was given to her. She will continue on Zoloft. * ROS: G eneral/Constitutional: pain L ow back pain. C hills d enies. F atigue?admits. F ever d enies. E NT: Decreased hearing d enies. R espiratory: Cough d enies. C ardiovascular: Chest pain with exertion d enies. D yspnea on exertion?denies. S hortness of breath d enies. G astrointestinal: Constipation o ccasional. D ecreased appetite d enies. D iarrhea d enies. H eartburn d enies. N ausea d enies. R ectal bleeding d enies. V omiting d enies. H ematology: bruising d enies. p etechiae d enies. S wollen glands n one have been noted. G enitourinary: Frequent urination d enies. M usculoskeletal: Muscle aches d enies. P ainful joints d enies. S ciatica d enies. W eakness d enies. S kin: Itching d enies. R chantell d enies. S kin lesion(s)?denies. N eurologic: Difficulty speaking d enies. D izziness d enies.?Headache d enies. L ow back pain t hat is new. P sychiatric: Depressed mood d enies. * Medical History: * Surgical History: 2 C-sections * Hospitalization/Major Diagno stic Procedure: D enies Past Hospitalization * Family History: F ather: 58 yrs, cardiac disease, asthma. M other: alive. C hildren: alive.?Son(s): alive. D aughter(s): alive. 3 brother(s) , 2 sister(s) . 2 son(s) - healthy. .? There is no family history of breat cancer, ovarian cancer, pancreatic cancer or prostate cancer. * Social History: T obacco Use: T obacco Use/Smoking P atient is a f ormer smoker H ow long has it been since you last smoked??1-5 years A dditional Findings: Tobacco Non-User E x-cigarette smoker S he was born in [place]. She has been 20 years. She has 2 boys. She worked at a [employer] company with no toxic exposures and retired in the summer of 2016. * Medications: T akingOptiChamber Soraida - Miscellaneous as directed PO use with inhaler as directed ProAir HFA 108 (90 Base) MCG/ACT Aerosol Solution INHALE 2 PUFFS BY MOUTH EVERY 4 HOURS FOR 28 DAYS Inhalation every 4 hrs Fluticasone Propionate 50 MCG/ACT Suspension INSTILL 1 SPRAY INTO EACH NOSTRIL ONCE DAILY 60 Metoprolol Tartrate 25 MG Tablet 1 tablet with food Orally once a day Taking OptiChamber Soraida - Miscellaneous as directed PO use with inhaler as directed Taking ProAir HFA 108 (90 Base) MCG/ACT Aerosol Solution INHALE 2 PUFFS BY MOUTH EVERY 4 HOURS FOR 28 DAYS Inhalation every 4 hrs Taking Fluticasone Propionate 50 MCG/ACT Suspension INSTILL 1 SPRAY INTO EACH NOSTRIL ONCE DAILY 60 Taking Metoprolol Tartrate 25 MG Tablet 1 tablet with food Orally once a day DiscontinuedAzithromycin 250 MG Tablet 2 tablets on the first day, then 1 tablet daily for 4 days Orally Once a day PHENobarbital-Belladonna Alk 16.2 MG Tablet 1 tablet Orally twice a day ProAir HFA 108 (90 Base) MCG/ACT Aerosol Solution 1 puff as needed Inhalation every 4 hrs Pantoprazole Sodium 40 MG Tablet Delayed Release TAKE 1 TABLET BY MOUTH EVERY DAY Sertraline HCl 100 MG Tablet TAKE 1 TABLET BY MOUTH EVERY DAY Albuterol Sulfate HFA 108 (90 Base) MCG/ACT Aerosol Solution INHALE 1 PUFF INTO THE LUNGS EVERY 4 HOURS NEEDED. Zoloft 100 MG Tablet TAKE 1 TABLET BY MOUTH DAILY Medication List reviewed and reconciled with the patientDiscontinued Azithromycin 250 MG Tablet 2 tablets on the first day, then 1 tablet daily for 4 days Orally Once a day Discontinued PHENobarbital-Belladonna Alk 16.2 MG Tablet 1 tablet Orally twice a day Discontinued ProAir HFA 108 (90 Base) MCG/ACT Aerosol Solution 1 puff as needed Inhalation every 4 hrs Discontinued Pantoprazole Sodium 40 MG Tablet Delayed Release TAKE 1 TABLET BY MOUTH EVERY DAY Discontinued Sertraline HCl 100 MG Tablet TAKE 1 TABLET BY MOUTH EVERY DAY Discontinued Albuterol Sulfate HFA 108 (90 Base) MCG/ACT Aerosol Solution INHALE 1 PUFF INTO THE LUNGS EVERY 4 HOURS NEEDED. Discontinued Zoloft 100 MG Tablet TAKE 1 TABLET BY MOUTH DAILY Medication List reviewed and reconciled with the patient * Allergies: A spirin: Anaphylaxis-Streptomycin - AllergyIbuprofenCodeine PhosphateSertraline Objective: * Vitals: H t: 60, Wt:130, BMI:25.39, BP:140/86, HR:93, Temp:97.9, Wt-k.97. * Examination: G eneral Examination: GENERAL APPEARANCE: p leasant, well nourished, well developed, in no acute distress, calm and relaxed, overweight, woman. HEAD: a traumatic, normocephalic. EYES: e didier, perrla, anicteric, conjugate. EARS: n ormal. NOSE: s eptum intact. ORAL CAVITY: n ormal, unremarkable. NECK/THYROID: n o jugular venous distention, no carotid bruit, thyroid normal. LYMPH NODES: n o enlarged lymph nodes,spleen normal. SKIN: n o suspicious lesions, anicteric. HEART: n o clicks, gallops, murmurs, or rubs, regular rhythm, S1, S2 normal, no s3, or vascular bruits. LUNGS: c lear to auscultation . BREASTS: n o masses palpable bilaterally, no drainage, no discharge, no dimpling, nontender, symmetrical. ABDOMEN: b owel sounds normal, no ascites, no organomegaly, no mass. RECTAL EXAM: n ot examined. MUSCULOSKELETAL: e xtremities unremarkable, no clubbing, cyanosis or edema,, Mild decreased range of motion lumbar spiine. PERIPHERAL PULSES: n ormal. NEUROLOGIC: a lert and oriented, cranial nerves 2-12 grossly intact, deep tendon reflexes 2+ symmetrical, motor strength normal upper and lower extremities, sensory exam intact. PSYCH: a lert, oriented. Assessment: * Assessment: 1. M oderate persistent asthma, unspecified whether complicated - J45.40 (Primary) ?Notes :She was not wheezing today. Her medication is up-to-date. 2 . A ge-related osteoporosis without current pathological fracture - M81.0? Notes :She is due for a bone density examination, which we have ordered. She was instructed to take 500 mg of calcium twice a day as well as 1000 units of vitamin D. 3 . H yperlipidemia - E78.5 N otes :Comprehensive blood work with a fasting lipid profile has been ordered to be done in the near future. 4 . O verweight - E66.3 N otes :She has lost substantial weight since her last visit over a year ago. She is only slightly overweight. We discussed her diet and nutrition. We made a plan to reduce her body mass index to the middle of the normal range. 5 . E ncounter for screening mammogram for malignant neoplasm of breast - Z12.31 N otes :An annual screening mammogram has been ordered. 6 . O ther low back pain - M54.59 7 . F ormer smoker - Z87.891 N otes :She is not currently smoking. We have discussed plans for prevention of relapse in times of stress and illness. Plan: * Treatment: 2. A ge-related osteoporosis without current pathological fracture [facility] Misc[facility], -, as directed, PO, use with inhaler as directed; C ontinue ProAir HFA Aerosol Solution, 108 (90 Base) MCG/ACT, INHALE 2 PUFFS BY MOUTH EVERY 4 HOURS FOR 28 DAYS, Inhalation, every 4 hrs; C ontinue Fluticasone Propionate Suspension, 50 MCG/ACT, INSTILL 1 SPRAY INTO EACH NOSTRIL ONCE DAILY 60; C ontinue Metoprolol Tartrate Tablet, 25 MG, 1 tablet with food, Orally, once a day. I maging: BONE DENSITY DEXA 3. H yperlipidemia L AB: PROFILE, FASTING (COMPREHENSIVE METABOLIC) L AB: CBC WITH AUTO DIFF L AB: Lipid Panel 4. O verweight L AB: PROFILE, FASTING (COMPREHENSIVE METABOLIC) L AB: CBC WITH AUTO DIFF L AB: Lipid Panel 5. E ncounter for screening mammogram for malignant neoplasm of breast I maging: MM tomosynthesis screening BI * Procedure Codes: * Preventive Medicine: Counseling: C are goal follow-up plan: Counseling for abnormal BMI given Y es Above Normal BMI Follow-up D ietary management education, guidance, and counseling, Dietary needs education, Exercise promotion: strength training, Exercise promotion: stretching, Feeding regime, Giving encouragement to exercise, Lifestyle education regarding diet, Nutrition / feeding management, Nutrition therapy, Prescribed activity/exercise education, Prescribed diet education, Prescribed dietary intake, Special diet education, Weight monitoring , Intervention, Order not done: Medical or Other reason not done S moking/Tobacco Use Patient counseled on the dangers of tobacco use and urged to quit. 0 10/30/2024 * Follow Up: 6 Weeks (Reason: Pre Op Clearance, Cataract Surgery) * Images: * Sign off status: Completed true * Provider: Dali Smith MD Date: 0 10/30/2024 Generated for Printi ng/Valenting/eTransmitting on: 11/13/2024 11:04 PM EST History and Physical Notes * HPI (History of Present Illness) Category Sub-Category Detail Notes COVID-19 Screening Questions Have you had any new onset fever, chills, cough, congestion, sore throat, shortness of breath, muscle aches?: No Examination Category Sub-Category Detail Notes General Examination GENERAL APPEARANCE: pleasant , well nourished, well developed, in no acute distress, calm and relaxed, overweight, woman HEAD: atraumatic, normocep halic EYES: eomi, perrla, anicte frank, conjugate EARS: normal NOSE: septum intact NECK/THYROID: no jugular venous di stention, no carotid bruit, thyroid normal HEART: no clicks, gallops, murmurs, or rubs, regular rhythm, S1, S2 normal, no s3, or vascular bruits LUNGS: clear to auscultatio n ABDOMEN: bowel sounds normal, no ascites, no organomegaly, no mass NEUROLOGIC: alert and oriented, cranial nerves 2-12 grossly intact, deep tendon reflexes 2+ symmetrical, motor strength normal upper and lower extremities, sensory exam intact SKIN: no suspicious lesion s, anicteric PERIPHERAL PULSES: normal BREASTS: no masses palpable b ilaterally, no drainage, no discharge, no dimpling, nontender, symmetrical MUSCULOSKELETAL: extremities unremark able, no clubbing, cyanosis or edema,, Mild decreased range of motion lumbar spiine LYMPH NODES: no enlarged lymph no shane,spleen normal RECTAL EXAM: not examined PSYCH: alert, oriented ORAL CAVITY: normal, unremarkable
--- OUTSIDE RECORDS SUMMARY | 2025-04-01 12:00 | XMS_ITS ---
Author Organization Shabbir Smith III, MD Address [address] [address] Care Team Providers Care Medical Auditor Name Role Phone Dr. Shabbir Smith III Primary Care Provider [phone] REASON FOR VISIT Annual Exam Social History Sex Assigned At : Social History Observation Description Sex Assigned At Female Encounters Encounter Location Date Provider Diagnosis Shabbir Smith III, MD [address] [place] [address] [place] [address] 04/01/2025 Shabbir Smith Plan Of Treatment Next Appt Details Provider Name:Shabbir Smith , 02/14/2026 04:00:00 PM, [address] [facility] [place], [address], Provider Name:Shabbir Smith , 08/19/2026 04:00:00 PM, [address] [facility] [place], [address], Progress Notes * Farzaneh HICKEYaDOB:1955 (70 yo F)Acc No.[id number]:04/01/2025 Progress Notes Patient: Val LAWRENCE Provider: Dali Smith MD :1955 A ge:70 Y S ex:Female Date:04/01/2025 Address:[address] [place] [address], [facility], [facility] Subjective: * Chief Complaints: * 1 . Annual Exam. * Medical History: Objective: * Vitals: Assessment: Plan: * Treatment: * Images: * The named appointment provid er may or may not be the originator of this progress note, and it is not deemed complete until electronically signed by the appointment provider. Sign off status: Pending * Provider: Dali Smith MD Date: 0 04/01/2025 Generated for Leelee thomas/María Elena/Licoitting on: 1 11/13/2024 11:05 PM EST
--- OUTSIDE RECORDS SUMMARY | 2025-06-26 09:15 | XMS_ITS ---
Author Organization Shabbir Smith III, MD Address [address] [place] [address] Care Team Providers Care Yolk Spray Drier Name Role Phone Dr. Shabbir Smith III Primary Care Provider [phone] REASON FOR VISIT Rx Refill Social History Sex Assigned At : Social History Observation Description Sex Assigned At Female Encounters Encounter Location Date Provider Diagnosis Shabbir Smith III, MD [address] [place] [address] [place] [address] 06/26/2025 Shabbir Smith Plan Of Treatment Next Appt Details Provider Name:Shabbir Smith , 02/14/2026 04:00:00 PM, [address] [place] [address] [place], [address], Provider Name:Shabbir Smith , 08/19/2026 04:00:00 PM, [address] [place] [address] [place], [address], Progress Notes * FELICIANO FranklinB:1955 (70 yo F)Acc No.[id number]:06/26/2025 Patient: Val LAWRENCE :1955 A ge:70 Y S ex:Female Address:[address] [place] [address], [facility], [place] [address] * true * Date: Generated for Leelee thomas/María Elena/Baileysmitting on: 11/13/2024 11:05 PM EST
--- OUTSIDE RECORDS SUMMARY | 2025-06-26 10:36 | XMS_ITS ---
Author Organization Shabbir Smith III, MD Address [address] [place] [address] [place] [address] Care Team Providers Care Medical Concierge Name Role Phone Dr. Shabbir Smith III Primary Care Provider [phone] Medications Medication SIG (Take, Route, Frequency, Duration) Notes Start Date End Date Status Albuterol Sulfate HFA 108 (90 Base) MCG/ACT 1 puff if needed Inhalation every 4 hrs for 90 days 06/26/2025 Active Social History Sex Assigned At : Social History Observation Description Sex Assigned At Female Encounters Encounter Location Date Provider Diagnosis Shabbir Smith III, MD [address] [place] [address] [place] [address] 06/26/2025 Shabbir Smith Plan Of Treatment Medication Medication Name Sig Start Date Stop Date Notes Albuterol Sulfate HFA 108 (9 0 Base) MCG/ACT 1 puff if needed Inhalation every 4 hrs for 90 days 06/26/2025 Next Appt Details Provider Name:Shabbir Smith , 02/14/2026 04:00:00 PM, [address] [facility] [address], [place], [address], Provider Name:Shabbir Smith , 08/19/2026 04:00:00 PM, [address] [place] [address] [address], [place], [address], Progress Notes * Franklin HICKEYB:1955 (70 yo F)Acc No.[id number]:06/26/2025 Patient: Val LAWRENCE :1955 A ge:70 Y S ex:Female Address:[address] [place] [address], [address] [place] [address] * Refills Start Albuterol Sulfate HFA Aerosol Solution, 108 (90 Base) MCG/ACT, Inhalation, 3 Inhaler, 1 puff if needed, every 4 hrs, 90 days, Refills=3 * true * Date: Generated for Leelee thomas/María Elena/Baileysmitting on: 1 11/13/2024 11:04 PM EST
--- OUTSIDE RECORDS SUMMARY | 2025-08-16 11:00 | XMS_ITS ---
Author Organization Shabbir Smith III, MD Address [address] [place] [address] Care Team Providers Care Network Operations Technician Name Role Phone Dr. Shabbir Smith III Primary Care Provider [phone] Allergies Allergen (clinical drug ingredient) Drug/Non Drug Allergy documented on EMR Reaction Allergy Type Onset Date Status sertraline Sertraline Unknown Drug Allergy Activ e No Known Food Allergy Unknown Drug Allergy Active ibuprofen Ibuprofen Unknown Drug Allergy Active Codeine Phosphate Unknown Drug Allergy Active Animal fur (uncoded) Unknown Allergy Active aspirin Aspirin Anaphylaxis-Stre ptomycin Drug Allergy Active Reason For Referral Reason Evaluate and Treat Screen for Colon Cancer Diagnosis 1 Screen for colon can cer (Z12.11) Referral Organization Shabbir Smith III, MD Referring Provider First Name Shabbir Referring Provider Last Name Sarah Referring Provider Speciality Internal M edicine Referred Provider TOVA SALINAS Referred Provider Specialty Gastroentero logy General Notes D, Philomena 08/19/2025 11:34:13 AM > Faxed referral and progress note Philomena Conteh 09/10/2025 03:35:54 PM > Dr. Salinas office spoke to patient on 08/27/25. Patient stated she will call their office when she is ready to schedule Referral Priority Routine REASON FOR VISIT Annual Exam Medications Medication SIG (Take, Route, Frequency, Duration) Notes Start Date End Date Status ProAir HFA 108 (90 Base) MCG/ACT INHALE 2 PUFFS BY MOUTH EVERY 4 HOURS FOR 28 DAYS Inhalation every 4 hrs Active Metoprolol Succinate ER 50 MG 1 tablet Orally Once a day 11/30/2024 Active Ketoconazole 2 % 1 application Retail And Promotions Coordinator ally twice a day 10/30/2024 Active OptiChamber Soraida - as directed PO use with inhaler as directed 03/22/2019 Active Fluticasone Propionate 50 MCG/ACT INSTILL 1 SPRAY INTO EACH NOSTRIL ONCE DAILY 60 90 Active Albuterol Sulfate HFA 108 (90 Base) MCG/ACT 1 puff if needed Inhalation every 4 hrs 06/26/2025 Active Social History Tobacco Use: Social History Observation Description Date Details (start date - stop date) Former Smoker NA - NA Sex Assigned At : Social History Observation Description Sex Assigned At Female Tobacco Control (Standard) Question Answer Notes Tobacco use: Former smoker How long has it been since you last smoked? 5-10 years Additional Findings: Tobacco non-user Ex-cigaret te smoker AUDIT-C (Standard) Question Answer Notes Did you have a drink contain ing alcohol in the past year? Yes How often did you have six o r more drinks on one occasion in the past year? 4 or more times a week (4 points) How many drinks did you have on a typical day when you were drinking in the past year? 1 or 2 drinks (0 point) How often did you have a dri nk containing alcohol in the past year? Never (0 point) Points 4 Interpretation Positive Problems Problem Type SNOMED Code ICD Code Onset Dates Problem Status W/U Status Risk Notes Problem Screening for malignant neoplasm of breast (786507135) Encounter for screening mammogram for malignant neoplasm of breast (Z12.31) Active confirmed She is due for a mammogram in October 2025. This was scheduled today. Vital Signs Temperature 98.1 degrees Fahrenheit 08/16/20 25 Blood pressure systolic 138 mm Hg 08/16/20 25 Blood pressure diastolic 79 mm Hg 025 Heart Rate 74 /min 08/16/2025 Height 60 in 08/16/2025 Weight 135 lbs 08/16/2025 BMI 26.36 kg/m2 08/16/2025 Encounters Encounter Location Date Provider Diagnosis Shabbir Smith III, MD [address] [place] [address] [address] [place], [place] [id number] 08/16/2025 Shabbir Smith Age-related osteopor osis without current pathological fracture M81.0 ; Moderate persistent asthma, unspecified whether complicated J45.40 ; Overweight E66.3 ; Hyperlipidemia E78.5 ; Encounter for screening mammogram for malignant neoplasm of breast Z12.31 ; Former smoker Z87.891 ; Sciatica, unspecified laterality M54.30 and Environmental allergies Z91.09 Assessments Encounter Date Diagnosis (ICD Code) Assessment Notes Treat ment Notes Treatment Clinical Notes 08/16/2025 Age-related osteoporosis without current pathological fracture (ICD-10 - M81.0) She is known to have osteoporosis by bone density measurement.A bone density was ordered. By my office in [facility] of this year but the result is not available. Mammogram ordered the same date was done at [facility]. She will need a bone density. I referred her back to GYNECOLOGY TEACHER. She is not taking calcium but is taking vitamin D through a multiple vitamin. I recommended she take 500 mg of calcium carbonate twice a day and 1000 units of vitamin D3 once a day. A bone density has been ordered. She is a candidate for alendronate. 08/16/2025 Moderate persistent asthma, unspecified whether complicated (ICD-10 - J45.40) She was not wheezing today. Her medication is up-to-date. 08/16/2025 Overweight (ICD-10 - E66.3) She has gained 8 pounds since her last visit. Her body mass index is 26. We reviewed her diet and nutrition. We made a plan to lose weight at a rate of one half of a pound per week through a diet restricted in fat calories and sodium combined with physical activity. 08/16/2025 Hyperlipidemia (ICD-10 - E78.5) Comprehensive blood work was a fasting lipid profile has been ordered to be done. This issue will be reviewed. Blood work is available. 08/16/2025 Encounter for screening mammogram for malignant neoplasm of breast (ICD-10 - Z12.31) She is due for a mammogram in October 2025. This was scheduled today. 08/16/2025 Former smoker (ICD-1 0 - Z87.891) She is not currently smoking. We have discussed plans for prevention of relapse in times of stress and illness. 08/16/2025 Sciatica, unspecifie d laterality (ICD-10 - M54.30) She is feeling better now and no change in regimen was necessary. 08/16/2025 Environmental allergies (ICD-10 - Z91.09) Her allergies have not bothered her much this summer and she has no symptoms today. Plan Of Treatment Medication Medication Name Sig Start Date Stop Date Notes ProAir HFA 108 (90 Base) MCG/ACT INHALE 2 PUFFS BY MOUTH EVERY 4 HOURS FOR 28 DAYS Inhalation every 4 hrs Metoprolol Succinate ER 50 MG 1 tablet Orally Once a day 0 11/30/2024 Ketoconazole 2 % 1 application Retail And Promotions Coordinator ally twice a day 10/30/[address] [facility] Soraida - as directed PO use with inhaler as directed 03/22/2019 Fluticasone Propionate 50 MCG/ACT INSTILL 1 SPRAY INTO EACH NOSTRIL ONCE DAILY 60 90 Albuterol Sulfate HFA 108 (9 0 Base) MCG/ACT 1 puff if needed Inhalation every 4 hrs 06/26/2025 Pending Test Test Name Order Date PROFILE, FASTING (COMPREHENSIVE METABOLI C) 08/16/2025 CBC w DIFF 08/16/2025 Lipid Panel 08/16/2025 Lipoprotein A 08/16/2025 Vitamin D 25-OH Total 08/16/2025 MM tomosynthesis screening BI 08/16/2025 Referrals Referral Date Details 08/16/2025 08/16/2025, Evaluate and Treat Screen for Colon Cancer, TOVA SALINAS Next Appt Details Follow Up: 6 Months, Reason: OV Provider Name:Shabbir Smith , 02/14/2026 04:00:00 PM, [address] [place] [address] [address], [place], [id number], Provider Name:Shabbir Smith , 08/19/2026 04:00:00 PM, [address] [place] [address] [address], [place], [id number], Progress Notes * Farzaneh HICKEYaDOB:1955 (70 yo F)Acc No.[id number]:08/16/2025 Progress Notes Patient: Val LAWRENCE Provider: Dali Smith MD :1955 A ge:70 Y S ex:Female Date:08/16/2025 Address:[address] [place] [address], [facility] [place] [id number] Subjective: * Chief Complaints: * A nnual Exam * HPI: D epression Screening: S he returns to the office at the age of 70 for her annual visit. She reports that her sister has been found to have an elevated lipoprotein a. Neither she nor her sister have a significant history of athero-sclerosis. We discussed the significance of this at length as a marker of. Her own lipid profile was discussed at length. She is overdue to see GYNECOLOGY TEACHER whom she sees at the [facility]. She was referred back there. She was instructed about the use of 500 mg of calcium carbonate twice a day with vitamin D3 1000 units daily. She is currently taking vitamin D with her multiple vitamins. She has no new complaints and says she feels well. She denied any chest pain shortness of breath nausea vomiting diarrhea or unusual bleeding.Comprehensive blood work with a lipoprotein a was ordered today. PHQ-9 L ittle interest or pleasure in doing things?Not at all F eeling down, depressed, or hopeless N ot at all T rouble falling or staying asleep, or sleeping too much N ot at all F eeling tired or having little energy N ot at all P oor appetite or overeating N ot at all F eeling bad about yourself or that you are a failure, or have let yourself or your family down N ot at all T rouble concentrating on things, such as reading the newspaper or watching television N ot at all M oving or speaking so slowly that other people could have noticed; or the opposite, being so fidgety or restless that you have been moving around a lot more than usual N ot at all T houghts that you would be better off or of hurting yourself in some way N ot at all T otal Score 0 Interpretation and Intervention D epression Screening Findings N egative C OVID-19 Screening: Questions H ave you had any new onset fever, chills, cough, congestion, sore throat, shortness of breath, muscle aches? N o S WOOD Questions: SDOH Questions I n the past year have you or any family members you live with been unable to get any of the following when it was really needed? Check all that apply: D ecline to answer F all Risk Screening: Fall History H ave you had any falls with injury in the past year? N o H ave you had two or more falls in the past year? N o F all Risk Assessment: N o falls in the past year * ROS: G eneral/Constitutional: pain o nly normal aches and pains. C hills d enies.?Fatigue a dmits. F ever d enies. E NT: Decreased [...] have been noted. G enitourinary: Frequent urination a t night. M usculoskeletal: Muscle aches d enies. P ainful joints d enies. S ciatica d enies. W eakness d enies. S kin: Itching d enies. R chantell d enies. S kin lesion(s)?denies. N eurologic: Difficulty speaking d enies. D izziness d enies.?Headache d enies. L ow back pain d enies. P sychiatric: Depressed mood d enies. * Medical History: * Surgical History: 2 C-sections Tonsils removed [id number] cataract surgery 2024 * Hospitalization/Major Diagno stic Procedure: N o history * Family History: F ather: 58 yrs, cardiac disease, asthma. M other: alive, Blind,. C karen: alive. S on(s): alive. D laureen(s): alive. 3 brother(s) , 2 sister(s) . 2 son(s) - healthy. . There is no family history of breat cancer, ovarian cancer, pancreatic cancer or prostate cancer. * Social History: T obacco Use: T obacco Control (Standard) T obacco use: F ormer smoker H ow long has it been since you last smoked??5-10 years A dditional Findings: Tobacco non-user E x-cigarette smoker D rugs/Alcohol: D rugs H ave you used drugs other than those for medical reasons in the past 12 months? Y es M arijuana? Y es D rug/Alcohol: A CHANI-C (Standard) D id you have a drink containing alcohol in the past year? Y es H ow often did you have six or more drinks on one occasion in the past year? 4 or more times a week (4 points) H ow many drinks did you have on a typical day when you were drinking in the past year? 1 or 2 drinks (0 point) H ow often did you have a drink containing alcohol in the past year? N ever (0 point) P oints 4 I nterpretation P ositive S he was born in [place]. She has been 20 years. She has 2 boys. She worked at a [employer] with no toxic exposures and retired in the summer of 2015. * Medications: T akingOptiChamber Soraida - Miscellaneous as directed PO use with inhaler as directed Fluticasone Propionate 50 MCG/ACT Suspension INSTILL 1 SPRAY INTO EACH NOSTRIL ONCE DAILY 60 90 Albuterol Sulfate HFA 108 (90 Base) MCG/ACT Aerosol Solution 1 puff if needed Inhalation every 4 hrs Taking OptiChamber Soraida - Miscellaneous as directed PO use with inhaler as directed Taking Fluticasone Propionate 50 MCG/ACT Suspension INSTILL 1 SPRAY INTO EACH NOSTRIL ONCE DAILY 60 90 Taking Albuterol Sulfate HFA 108 (90 Base) MCG/ACT Aerosol Solution 1 puff if needed Inhalation every 4 hrs DiscontinuedMetoprolol Succinate ER 50 MG Tablet Extended Release 24 Hour 1 tablet Orally Once a day Ketoconazole 2 % Cream 1 application Externally twice a day Medication List reviewed and reconciled with the patientDiscontinued Metoprolol Succinate ER 50 MG Tablet Extended Release 24 Hour 1 tablet Orally Once a day Discontinued Ketoconazole 2 % Cream 1 application Externally twice a day Medication List reviewed and reconciled with the patient * Allergies: A spirin: Anaphylaxis-Streptomycin - AllergyIbuprofenCodeine PhosphateSertralineAnimal furNo Known Food Allergyno[Allergies Verified] Objective: * Vitals: H t: 60, Wt:135, BMI:26.36, BP:138/79, HR:74, Temp:98.1, Wt-k.23. * Examination: G eneral Examination: GENERAL APPEARANCE: p leasant, well nourished, well developed, in no acute distress, calm and relaxed: overweight: woman. HEAD: a traumatic, normocephalic. EYES: e [...] LUNGS: c lear to auscultation . BREASTS: no masses palpable bilaterally. ABDOMEN: b owel sounds normal, no ascites, no organomegaly, no mass: overweight. RECTAL EXAM: n ot examined. MUSCULOSKELETAL: e xtremities unremarkable, no clubbing, cyanosis or edema. PERIPHERAL PULSES: n ormal. NEUROLOGIC: a lert and oriented, cranial nerves 2-12 grossly intact, deep tendon reflexes 2+ symmetrical, motor strength normal upper and lower extremities, sensory exam intact. PSYCH: a lert, oriented: cognitive function intact: cooperative with exam: good eye contact: speech clear: thought process logical, goal directed. ? Assessment: * Assessment: 1. A ge-related osteoporosis without current pathological fracture - M81.0 (Primary) N otes :She is known to have osteoporosis by bone density measurement.A bone density was ordered. By my office in [facility] of this year but the result is not available. Mammogram ordered the same date was done at [facility]. She will need a bone density. I referred her back to GYNECOLOGY TEACHER. She is not taking calcium but is taking vitamin D through a multiple vitamin.? I recommended she take 500 mg of calcium carbonate twice a day and 1000 units of vitamin D3 once a day. A bone density has been ordered. She is a candidate for alendronate. 2. M oderate persistent asthma, unspecified whether complicated - J45.40 N otes :She was not wheezing today. Her medication is up-to-date. 3 . O verweight - E66.3 N otes :She has gained 8 pounds since her last visit. Her body mass index is 26. We reviewed her diet and nutrition. We made a plan to lose weight at a rate of one half of a pound per week through a diet restricted in fat calories and sodium combined with physical activity. 4 . H yperlipidemia - E78.5 N otes :Comprehensive blood work was a fasting lipid profile has been ordered to be done. This issue will be reviewed. Blood work is available. 5 . E mina for screening mammogram for malignant neoplasm of breast - Z12.31 N otes :She is due for a mammogram in October 2025. This was scheduled today. 6 . F ormer smoker - Z87.891 N otes :She is not currently smoking. We have discussed plans for prevention of relapse in times of stress and illness. 7 . S ciatica, unspecified laterality - M54.30 N otes :She is feeling better now and no change in regimen was necessary. 8 . E nvironmental allergies - Z91.09 N otes :Her allergies have not bothered her much this summer and she has no symptoms today. Plan: * Treatment: 2. M oderate persistent asthma, unspecified whether complicated Continue Ketoconazole Cream, 2 %, 1 application, Externally, twice a day. L AB: PROFILE, FASTING (COMPREHENSIVE METABOLIC) L AB: CBC w DIFF L AB: Lipid Panel L AB: Lipoprotein A L AB: Vitamin D 25-OH Total 3. O verweight L AB: PROFILE, FASTING (COMPREHENSIVE METABOLIC) L AB: CBC w DIFF L AB: Lipid Panel L AB: Lipoprotein A L AB: Vitamin D 25-OH Total 4. H yperlipidemia L AB: PROFILE, FASTING (COMPREHENSIVE METABOLIC) L AB: CBC w DIFF L AB: Lipid Panel L AB: Lipoprotein A L AB: Vitamin D 25-OH Total 5. E ncounter for screening mammogram for malignant neoplasm of breast I maging: MM tomosynthesis screening BI 6. O thers Continue Albuterol Sulfate HFA Aerosol Solution, 108 (90 Base) MCG/ACT, 1 puff if needed, Inhalation, every 4 hrs. Referral To:TOVA SALINAS Gastroenterology Reason:Evaluate and Treat Screen for Colon Cancer * Procedure Codes: * Preventive Medicine: Counseling: C are goal follow-up plan: Counseling for abnormal BMI given Y es Above Normal BMI Follow-up D ietary management education, guidance, and counseling S moking/Tobacco Use Patient counseled on the dangers of tobacco use and urged to quit. 1 10/16/2024 * Follow Up: 6 Months (Reason: OV) * Images: * Sign off status: Completed true * Provider: Dali Smith MD Date: 1 10/16/2024 Generated for Ashiai martha/María Elena/eTransmitting on: 11/13/2024 11:03 PM EST History and Physical Notes * HPI (History of Present Illness) Category Sub-Category Detail Notes Depression Screening PHQ-9 Little inte rest or pleasure in doing things: Not at all Feeling down, depressed, or hopeless: No t at all Trouble falling or staying asleep, or sl eeping too much: Not at all Feeling tired or having little energy: N ot at all Poor appetite or overeating: Not at all Feeling bad about yourself o r that you are a failure, or have let yourself or your family down: Not at all Trouble concentrating on thi ngs, such as reading the newspaper or watching television: Not at all Moving or speaking so slowly that other people could have noticed; or the opposite, being so fidgety or restless that you have been moving around a lot more than usual: Not at all Thoughts that you would be b valerie off or of hurting yourself in some way: Not at all Total Score: 0 Interpretation and Intervention Depression Scree tani Findings: Negative Fall Risk Screening Fall History Have you had any falls with injury in the past year?: No Have you had two or more falls in the st year?: No Fall Risk Assessment:: No falls in the p year COVID-19 Screening Questions Have you had any new onset fever, chills, cough, congestion, sore throat, shortness of breath, muscle aches?: No SDOH Questions SDOH Questions In the past year have you or any family members you live with been unable to get any of the following when it was really needed? Check all that apply:: Decline to answer Examination Category Sub-Category Detail Notes General Examination GENERAL APPEARANCE: pleasant , well nourished, well developed, in no acute distress, calm and relaxed: overweight: woman HEAD: atraumatic, normocep halic EYES: eomi, perrla, anicte frank, conjugate EARS: normal NOSE: septum intact NECK/THYROID: no jugular venous di stention, no carotid bruit, thyroid normal HEART: no clicks, gallops, murmurs, or rubs, regular rhythm, S1, S2 normal, no s3, or vascular bruits LUNGS: clear to auscultatio n ABDOMEN: bowel sounds normal, no ascites, no organomegaly, no mass: overweight NEUROLOGIC: alert and oriented, cranial nerves 2-12 grossly intact, deep tendon reflexes 2+ symmetrical, motor strength normal upper and lower extremities, sensory exam intact SKIN: no suspicious lesion s, anicteric PERIPHERAL PULSES: normal BREASTS: no masses palpable b ilaterally MUSCULOSKELETAL: extremities unremark able, no clubbing, cyanosis or edema LYMPH NODES: no enlarged lymph no shane,spleen normal RECTAL EXAM: not examined PSYCH: alert, oriented: cog nitive function intact: cooperative with exam: good eye contact: speech clear: thought process logical, goal directed ORAL CAVITY: normal, unremarkable Consultation Request Notes Referral Date Referring Provider Referred Provider Not gerry 08/16/2025 Shabbir Smith BARRY Evaluate and Treat Screen for Colon Cancer
[2025-09-12 16:06] VITALS: BP 128/80; PULSE 83; O2SAT 97; BMI 27.1
--- NOTE | 2025-09-12 16:06 | AM.OFFWIN_ITS ---
Intake Vital Signs 09/12/25 16:06 Height 4 ft 11 in Weight 134 lb BMI 27.1 BP 128/80 Blood Pressure Location Lt brachial Position Sitting Pulse 83 Pulse Source Pulse Oximeter Pulse Oximetry (%) 97 Oxygen Delivery Method Room Air Intake Visit Reasons: EP Pain in left hand Intake Note: pt is here for c/o left hand pain since tuesday, denies injury. Allergies aspirin (ASPIRIN) Allergy (Intermediate, Verified 09/12/25 16:07) HIVES NSAIDS (Non-Steroidal Anti-Inflamma (NSAIDS (NON-STEROIDAL ANTI-INFLAMMA) Allerg y (Intermediate, Verified 09/12/25 16:07) HIVES Do you need a note to return to daycare/school/sports/work: No HPI HPI Comments History of Present Illness Details History of Present Illness - The patient is a 70 year old female pr esenting with a sudden onset of excruciating, throbbing pain in her left hand which started on Tuesday. - The pain radiates from her left hand u p her arm to her shoulder. - She, a left-handed individual, attempt ed to seek care at a hospital on Tuesday but left after a five-hour wait without being seen by a provider. - She has been taking Tylenol for pain, and notes that the pain has started to calm down since arriving at the clinic. - The patient reports a history of arthr itis in her hand and noticed a discolored, blue triangle-shaped area on her hand that was exceptionally painful to touch. - She has no known trauma or falls. - She has no injury that she knows of to the hand. - She has a reported allergy to aspirin and has had reactions to other anti- inflammatory medications, so she only takes acetaminophen. - She denies numbness, tingling, swellin g or redness. - She has no new nodules to the hand. Physical Exam General: Cooperative, healthy appearing, comfortable, no acute distress and well developed Orientation: Patient oriented x3 Respiratory: Normal respiratory effort and able to speak in complete sentences. Clear to auscultation bilaterally. No w/r/r noted. Cardiovascular: Regular rate and rhythm. Normal S1 and S2. Pulses are 2+ on the UE. Skin: No rashes or lesions noted. Neuro: Sensation is intact. Extremities: Normal to inspection. No swelling, deformity or nodules noted. FROM of the digits on the left hand. TTP of the webspace on the left hand. No snuffbox tenderness noted. No TTP of the wrist. Supination and pronation is intact. Hand paramedic rn is intact. Strength is 5/5 on the UE. Negative Finklestein's noted. Patient was informed and verbally consented to the use of an ambient scribe for clinic note documentation during this visit. Review of Systems Const All systems reviewed & are unremarkable except as noted in HPI and below Physical Exam Vital Signs: Last Vital Signs Pulse 83 09/12/25 16:06 BP 128/80 09/12/25 16:06 Pulse Ox 97 09/12/25 16:06 Oxygen Delivery Method Room Air 09/12/25 16:06 BMI result Body Mass Index 27.1 Results Reviewed Results Reviewed: will review the xray in the office Assessment & Plan Assessment & Plan (1) Left hand pain: Code(s): M79.642 - Pain in left hand Plan Most likely arthritis vs strain plan - The patient's pain is thought to be related to an arthritis flare, possibly exacerbated by cold weather. - A left hand X-ray will be performed to rule out other underlying causes. - The patient will continue taking acetaminophen for pain management. - The patient was advised on conservative management including ice and elevation. - A hand splint was discussed but the patient declined as she is left-handed. - A possible future referral to a corporate treasury analyst for management of joint pains was mentioned. - The patient has a reported allergy to aspirin and has had reactions to other NSAIDs. - Due to her history, naproxen will not be prescribed, and she will continue to use acetaminophen for analgesia. Orders: Orders XR hand LT min 3V Today M79.642 - Pain in left hand Coding Level of Care Code Est Pt Level 4 (94296) Diagnoses Left hand pain M79.642
--- OUTSIDE RECORDS SUMMARY | 2025-09-12 23:04 | XMS_ITS | Patient Health Record ---
Author Organization Shabbir Smith III, MD Address [address] [place], [place] [address] Care Team Providers Care Tank Processor Name Role Phone Dr. Shabbir Smith III Primary Care Provider [phone] Allergies Allergen (clinical drug ingredient) Drug/Non Drug Allergy documented on EMR Reaction Allergy Type Onset Date Status sertraline Sertraline Unknown Drug Allergy Activ e No Known Food Allergy Unknown Drug Allergy Active ibuprofen Ibuprofen Unknown Drug Allergy Active Codeine Phosphate Unknown Drug Allergy Active aspirin Aspirin Anaphylaxis-Stre ptomycin Drug Allergy Active Animal fur (uncoded) Unknown Allergy Active Results Component Value Reference Range Notes MM tomosynthesis screening B I Reviewed date:11/10/2024 07:03:12 AM Interpretation: Performing Lab: Notes/Report: Complete Blood Count Auto Di ff Reviewed date:12/03/2024 11:27:00 AM Interpretation: Performing Lab:[facility], [address] [place] [phone] Notes/Report: White Blood Count 7.2 4.8-10.8 X10*3/uL Red Blood Count 4.07 4.20-5.50 X10*6/uL Hemoglobin 14.8 12.0-16.0 g/dl Hematocrit 42.8 37.0-47.0 % Mean Corpuscular Volume 105.2 80.0-98.0 fL Mean Corpuscular Hemoglobin 36.4 27.0-33.0 pg Mean Corpuscular HGB Conc 34.6 31.0-35.0 g/dl Red Cell Distribution Width 13.2 11.0-16.0 % Platelet Count 209 160-400 X10*3/uL Mean Platelet Volume 9.3 9.4-12.3 fL Neutrophils Percent Auto 65.9 45-73 % Imm Gran Pct Auto 1.1 0.0-0.4 % Lymphocytes Percent Auto 22.0 20-40 % Monocytes Percent Auto 6.3 2-11 % Eosinophils Percent Auto 3.9 0-4 % Basophils Percent Auto 0.8 0-2 % NRBC Pct Auto 0.0 0.0-0.2 /100WBC Neutrophils Absolute Auto 4.7 2.0-8.3 x10*3/uL Imm Gran Abs Auto 0.08 0.00-0.03 X10*3/uL Lymphocytes Absolute Auto 1.6 1.2-4.9 X10*3/uL Monocytes Absolute Auto 0.5 0.1-1.2 X10*3/uL Eosinophils Absolute Auto 0.3 0.0-0.4 X10*3/uL Basophils Absolute Auto 0.1 0.0-0.2 X10*3/uL NRBC Abs Auto 0.000 0.0-0.012 X10*3/uL Comprehensive [place]. Panel Fa st Reviewed date:12/03/2024 11:27:00 AM Interpretation: Performing Lab:[facility], [address] [place] [address], [place] [phone] Notes/Report: Sodium 138 135-145 mmol/L Potassium 4.7 3.3-5.1 mmol/L Chloride 100 96-108 mmol/L Carbon Dioxide 28 22-29 mmol/L Anion Gap 15 12-20 Blood Urea Nitrogen 6 9-16 mg/dL Creatinine 0.76 0.5-1.4 mg/dL Estimated Glomerular Filt Rate > 60 Chronic Kidney Disease: Estimated GFR < 60 mL/min/1.73m2 Severe Kidney Disease: Estimated GFR < 15 mL/min/1.73m2 Glucose Fasting 98 60-99 mg/dL Calcium 9.8 8.4-10.2 mg/dL Bilirubin Total 0.8 0.0-1.0 mg/dL Aspartate Amino Transferase 83 5-31 U/L Alanine Aminotransferase 56 0-31 U/L Total Protein 8.4 6.5-8.0 g/dL Albumin Level 4.3 3.5-5.0 g/dL Alkaline Phosphatase 81 39-117 U/L Lipid Panel Reviewed date:12/03/2024 11:27:00 AM Interpretation: Performing Lab:[address] [phone] Notes/Report: Triglycerides 81 <150 mg/dL Desirable Triglyceride: less than 150 mg/dL Borderline High Triglyceride 150-199 mg/dL High Triglyceride: 200-499 mg/dL Very High Triglyceride: greater than or equal to 5OO mg/dL Cholesterol 237 <200 mg/dL Desirable Cholesterol: less than 200 mg/dL Borderline High Cholesterol: 200-239 mg/dL High Cholesterol: greater than 239 mg/dL LDL Cholesterol Calculated 112 <100 mg/dL Desirable LDL: less than 100 mg/dL Near Optimal/Above Optimal LDL: 110-129 mg/dL Borderline High LDL: 130-159 mg/dL High LDL: 160-189 mg/dL Very High LDL: greater than or equal to 190 mg/dL HDL Cholesterol 109 >40 mg/dL Desirable HDL: greater than 40 mg/dL Note: This HDL assay may give artificially low results in patients with liver disease. Complete Blood Count Auto Di ff (Not yet reviewed by provider) Interpretation: Performing Lab:[address] [address] Notes/Report: White Blood Count 9.1 4.8-10.8 X10*3/uL Red Blood Count 3.76 4.20-5.50 X10*6/uL Hemoglobin 14.0 12.0-16.0 g/dl Hematocrit 39.7 37.0-47.0 % Mean Corpuscular Volume 105.6 80.0-98.0 fL Mean Corpuscular Hemoglobin 37.2 27.0-33.0 pg Mean Corpuscular HGB Conc 35.3 31.0-35.0 g/dl Red Cell Distribution Width 12.0 11.0-16.0 % Platelet Count 223 160-400 X10*3/uL Mean Platelet Volume 8.9 9.4-12.3 fL Neutrophils Percent Auto 74.0 45-73 % Imm Gran Pct Auto 0.5 0.0-0.4 % Lymphocytes Percent Auto 18.5 20-40 % Monocytes Percent Auto 4.3 2-11 % Eosinophils Percent Auto 2.3 0-4 % Basophils Percent Auto 0.4 0-2 % NRBC Pct Auto 0.0 0.0-0.2 /100WBC Neutrophils Absolute Auto 6.8 2.0-8.3 x10*3/uL Imm Gran Abs Auto 0.05 0.00-0.03 X10*3/uL Lymphocytes Absolute Auto 1.7 1.2-4.9 X10*3/uL Monocytes Absolute Auto 0.4 0.1-1.2 X10*3/uL Eosinophils Absolute Auto 0.2 0.0-0.4 X10*3/uL Basophils Absolute Auto 0.0 0.0-0.2 X10*3/uL NRBC Abs Auto 0.000 0.0-0.012 X10*3/uL Basic Metabolic Panel (Not y et reviewed by provider) Interpretation: Performing Lab:[facility], [address] [place] [phone] Notes/Report: Sodium 138 135-145 mmol/L Potassium 3.9 3.3-5.1 mmol/L Chloride 102 96-108 mmol/L Carbon Dioxide 22 22-29 mmol/L Anion Gap 18 12-20 Blood Urea Nitrogen 9 9-16 mg/dL Creatinine 0.54 0.5-1.4 mg/dL Creatinine Clr Calc Pharmacy 75.7 Provided height and weight: 149.86 cm, 60.8 kg. eGFR (calculated from the MDRD study equation) and eCrCl (calculated from the Cockcroft-Gault equation) are based on different parameters and may not yield comparable results. If eCrCl result is absurd, please check patient's height/weight. Estimated Glomerular Filt Rate > 60 Chronic Kidney Disease: Estimated GFR < 60 mL/min/1.73m2 Severe Kidney Disease: Estimated GFR < 15 mL/min/1.73m2 Glucose Random 109 60-115 mg/dL Calcium 9.2 8.4-10.2 mg/dL XR hand LT min 3V (Not yet r eviewed by provider) Interpretation: Performing Lab: Notes/Report: [facility] [address] [place] [address] [place] [address] XRay Report Signed Patient: Val Hickey MR#: [id number] [birth year] : 1955 Acct:[id number] Age/Sex: 70 / F ADM Date: 09/12/25 Loc: HO.HMGCX Attending Dr: Giuseppe Doran PA-C Ordering Physician: GIUSEPPE DORAN Date of Service: 09/12/25 Procedure(s): XR hand LT min 3V Accession Number(s): [id number] cc: Shabbir Smith MD; GIUSEPPE DORAN Reason for Exam: M79.642 - Pain in left hand CLINICAL HISTORY: PAIN LEFT HAND 3 view left hand Comparison: None provided Findings: No fractures or dislocations. Mild scattered degenerative changes mostly within the interphalangeal joints. There is also mild degenerative change at the 3rd metacarpophalangeal joint, and triscaphe joint. No erosions. No radiopaque foreign body. IMPRESSION: Scattered degenerative changes. No acute fracture. This document has been electronically signed by: Zackary Monroe MD on 09/12/2025 22:02:19 Dictated By: Zackary Monroe MD Signed By: <Electronically signed by Zackary Monroe MD in OV> 09/12/252202 DD/ 01 TD/TT: 09/12/252201 Body Shop Worker: [facility] [address] [place] [address] [place] [address] XRay Report Signed Patient: Farzaneh Hickey MR#: [id number] [birth year] : 1955 Acct:[id number] Age/Sex: 70 / F ADM Date: 09/12/25 Loc: HO.HMGCX Attending Dr: Kasey Doran PA-C Ordering Physician: GIUSEPPE DORAN Date of Service: 09/12/25 Procedure(s): XR meyers d LT min 3V Accession Number(s): [id number] cc: Shabbir Smith MD; GIUSEPPE DORAN Reason for Exam: M79 .642 - Pain in left hand CLINICAL HISTORY: PA IN LEFT HAND 3 view left hand Comparison: None provided Findings: No fractures or dislocations. Mild scattered degenerative changes mostly within the interphalangeal joints. There is als o mild degenerative change at the 3rd metacarpophalangeal joint, and triscaphe joint. No erosions. No radi opaque foreign body. IMPRESSION: Scattered degenerati ve changes. No acute fracture. This document has be en electronically signed by: Zackary Monroe MD on 09/12/2025 22:02:19 Dictated By: Zackary Monroe MD Signed By: <Davida icamarichuy signed by Zackary Monroe MD in OV> 09/12/252202 DD/ 01 TD/TT: 09/12/252201 Body Shop Worker: Reason For Referral Reason Evaluate and Treat Screen for Colon Cancer Diagnosis 1 Screen for colon can cer (Z12.11) Referral Organization Shabbir Smith III, MD Referring Provider First Name Shabbir Referring Provider Last Name Sarah Referring Provider Speciality Internal M edicine Referred Provider TOVA SALINAS Referred Provider Specialty Gastroentero logy General Notes Philomena Conteh 08/19/2025 11:34:13 AM > Faxed referral and progress note, Philomena Conteh 09/10/2025 03:35:54 PM > Dr. Salinas office spoke to patient on 08/27/25. Patient stated she will call their office when she is ready to schedule Referral Priority Routine Medications Medication SIG (Take, Route, Frequency, Duration) Notes Start Date End Date Status ProAir HFA 108 (90 Base) MCG/ACT INHALE 2 PUFFS BY MOUTH EVERY 4 HOURS FOR 28 DAYS Inhalation every 4 hrs Active Erin Qiugley - as directed PO use with inhaler as directed 03/22/2019 Active Fluticasone Propionate 50 MCG/ACT INSTILL 1 SPRAY INTO EACH NOSTRIL ONCE DAILY 60 90 Active Albuterol Sulfate HFA 108 (90 Base) MCG/ACT 1 puff if needed Inhalation every 4 hrs 06/26/2025 Active Metoprolol Succinate ER 50 MG 1 tablet Orally Once a day 11/30/2024 Active Ketoconazole 2 % 1 application Document Processing Specialist ally twice a day 10/30/2024 Active Immunizations Vaccine Route Administration Date Status Comme nts Influenza Unknown 07/05/2017 Administered COVID- 19 Vaccine Unknown 12/03/2020 Administered Tdap Unknown 06/12/2019 Administered PCV13 Unknown 10/08/2019 Administered COVID PFIZER Unknown 08/07/2021 Administered COVID-19 Moderna SPIKEVAX Unknown 07/04/2023 Administer ed Flu-IIv4pf Unknown 07/05/2017 Administered Fluzone High-Dose (HD-IIV3) Unknown 06/12/2019 Administ ered Influenza-iiv4 p-free high dose Unknown 07/01/2022 Admi nistered Influenza-iiv4 p-free high dose Unknown 07/04/2023 Admi nistered COVID Pfizer Bivalent Unknown 07/08/2022 Administered RSV Adjuvant Unknown 07/04/2023 Administered SHINGRIX Unknown 07/04/2023 Administered PCV20 Unknown 07/04/2023 Administered COVID PFIZER Unknown 02/05/2022 Administered COVID PFIZER Unknown 12/03/2020 Administered Social History Tobacco Use: Social History Observation [...] Problem Status W/U Status Risk Notes Problem 9162684 Former smoker (Z87.891) Active confirmed She is not currently smoking. We have discussed plans for prevention of relapse in times of stress and illness. Problem 26282979 Hyperlipidemia (E78.5) Active confirmed Comprehensive blood work was a fasting lipid profile has been ordered to be done. This issue will be reviewed. Blood work is available. Problem 09313073 Postmenopausal (Z78.0) Active confirmed She has an appointment set up with the book packer for ongoing routine care. Problem 669650223 Overweight (E66.3) Active confirmed She has gained 8 pounds since her last visit. Her body mass index is 26. We reviewed her diet and nutrition. We made a plan to lose weight at a rate of one half of a pound per week through a diet restricted in fat calories and sodium combined with physical activity. Problem Uncomplicated asthma (disorder) (986841827) Unspecified asthma, uncomplicated (J45.909) Active confirmed She has mild CO PD but no significant wheezing today. Problem Age-related osteoporosis (167296292) Age-related osteoporosis without current pathological fracture (M81.0) Active confirmed She is known to have osteoporosis by bone density measurement.A bone density was ordered. By my office in [facility] of this year but the result is not available. Mammogram ordered the same date was done at [facility]. She will need a bone density. I referred her back to [facility]OSPATIAL [facility]NALYST. She is not taking calcium but is taking vitamin D through a multiple vitamin. I recommended she take 500 mg of calcium carbonate twice a day and 1000 units of vitamin D3 once a day. A bone density has been ordered. She is a candidate for alendronate. Problem Screening for malignant neoplasm of breast (626525707) Encounter for screening mammogram for malignant neoplasm of breast (Z12.31) Active confirmed She is due f or a mammogram in October 2025. This was scheduled today. Problem 53230495 Essential hypertension (I10) Active confirmed Her blood pressure is normal today at 130/82. No change in her regimen was needed. I strongly recommended aggressive sodium restriction and weight loss. Problem 14219874 Osteoporosis (M81.0) Active confirmed She will contin ue on vitamin D and calcium as before. She will have a bone density test at two-year intervals. Problem 49590830 Sciatica, unspecified laterality (M54.30) Active confirmed She is feeling better now and no change in regimen was necessary. Problem 787377073 Environmental allergies (Z91.09) Active confirmed Her allergies have not bothered her much this summer and she has no symptoms today. 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 There is no contraindication to cataract surgery. The benefit is great and the risk is small. She is given medical clearance for the procedure with acceptable risk. Problem 876394518 Moderate persistent asthma, unspecified whether complicated (J45.40) Active confirmed She was not wheezing today. Her medication is up-to-date. Problem 675224733 Other low back pain (M54.59) Active confirmed Vital Signs Heart Rate 74 /min 08/16/2025 Temperature 98.1 degrees Fahrenheit 08/16/2025 Blood pressure diastolic 79 mm Hg 08/16/2025 Height 60 in 08/16/2025 Blood pressure systolic 138 mm Hg 08/16/2025 Weight 135 lbs 08/16/2025 BMI 26.36 kg/m2 08/16/2025 Encounters Encounter Location Date Provider Diagnosis Shabbir Smith III, MD [address] [place] [address] [place] [id number] 10/30/2024 Shabbir Smith Moderate persistent asthma, unspecified whether complicated J45.40 ; Age-related osteoporosis without current pathological fracture M81.0 ; Hyperlipidemia E78.5 ; Overweight E66.3 ; Encounter for screening mammogram for malignant neoplasm of breast Z12.31 ; Other low back pain M54.59 and Former smoker Z87.891 Shabbir Smith III, MD [address] [place] [address] [place] [phone] 11/30/2024 Shabbir Smith Age-related osteopor osis without current pathological fracture M81.0 ; Age-related cataract of both eyes, unspecified age-related cataract type H25.9 ; Moderate persistent asthma, unspecified whether complicated J45.40 ; Hyperlipidemia E78.5 ; Environmental allergies Z91.09 ; Former smoker Z87.891 ; Aspirin allergy Z88.8 ; Sciatica, unspecified laterality M54.30 and Unspecified asthma, uncomplicated J45.909 Shabbir Smith III, MD [address] [place] [address] [place] [address] 08/16/2025 Shabbir Smith Age-related osteopor osis without current pathological fracture M81.0 ; Moderate persistent asthma, unspecified whether complicated J45.40 ; Overweight E66.3 ; Hyperlipidemia E78.5 ; Encounter for screening mammogram for malignant neoplasm of breast Z12.31 ; Former smoker Z87.891 ; Sciatica, unspecified laterality M54.30 and Environmental allergies Z91.09 Shabbir Smith III, MD [address] [place] [address] [address] [place] [address] 06/26/2025 Shabbir Smith III, MD [address] [place] [address] [address] [place] [address] 06/26/2025 Shabbir Smith Assessments Encounter Date Diagnosis (ICD Code) Assessment Notes Treatment Notes Treatment Clinical Notes 10/30/2024 Age-related osteoporosis without current pathological fracture (ICD-10 - M81.0) She is due for a bone density examination, which we have ordered. She was instructed to take 500 mg of calcium twice a day as well as 1000 units of vitamin D. 10/30/2024 Moderate persistent asthma, unspecified whether complicated (ICD-10 - J45.40) She was not wheezing today. Her medication is up-to-date. 11/30/2024 Age-related osteoporosis without current pathological fracture (ICD-10 - M81.0) She is due for a bone density examination, which we have ordered. She was instructed to take 500 mg of calcium twice a day as well as 1000 units of vitamin D. CancelRx Response got Denied on 2024-12-01 07:49:25 for 'Metoprolol Succinate 50 MG Capsule ER 24 Hour Sprinkle'Pharmacy Notes: Prescription not found. Contact Pharmacy by other means CancelRx Response got Denied on 2024-12-03 09:59:44 for 'Metoprolol Succinate 50 MG Capsule ER 24 Hour Sprinkle'Pharmacy Notes: Prescription not found. Contact Pharmacy by other means 11/30/2024 Age-related cataract of both eyes, unspecified age-related cataract type (ICD-10 - H25.9) I have taken a careful history and examined this patient thoroughly. There is no contraindication to cataract surgery. The benefit is great and the risk is small. She is given medical clearance for the procedure with acceptable risk. 08/16/2025 Age-related osteoporosis without current pathological fracture (ICD-10 - M81.0) She is known to have osteoporosis by bone density measurement.A bone density was ordered. By my office in [facility] of this year but the result is not available. Mammogram ordered the same date was done at [facility]. She will need a bone density. I referred her back to GEOSPATIAL ANALYST. She is not taking calcium but is [...] wheezing today. Her medication is up-to-date. 10/30/2024 Hyperlipidemia (ICD-10 - E78.5) Comprehensive blood work with a fasting lipid profile has been ordered to be done in the near future. 11/30/2024 Moderate persistent asthma, unspecified whether complicated (ICD-10 [...] calories and sodium combined with physical activity. 10/30/2024 Overweight (ICD-10 - E66.3) She has lost substantial weight since her last visit over a year ago. She is only slightly overweight. We discussed her diet and nutrition. We made a plan to reduce her body mass index to the middle of the normal range. 11/30/2024 Hyperlipidemia (ICD-10 - E78.5) Her cholesterol is increased recently compared to prior values. The value will be repeated. Appropriate measures was undertaken. 08/16/2025 Hyperlipidemia (ICD-10 - E78.5) Comprehensive blood work was a fasting lipid profile has been ordered to be done. This issue will be reviewed. Blood work is available. 10/30/2024 Encounter for screening mammogram for malignant neoplasm of breast (ICD-10 - Z12.31) An annual screening mammogram has been ordered. 11/30/2024 Environmental allergies (ICD-10 - Z91.09) Her allergies have not bothered her much this summer and she has no symptoms today. 08/16/2025 Encounter for screening mammogram for malignant neoplasm of breast (ICD-10 - Z12.31) She is due for a mammogram in October 2025. This was scheduled today. 10/30/2024 Other low back pain (ICD-10 - M54.59) 11/30/2024 Former smoker (ICD-10 - Z87.891) She is not currently smoking. We have discussed plans for prevention of relapse in times of stress and illness. 08/16/2025 Former smoker (ICD-10 - Z87.891) She is not currently smoking. We have discussed plans for prevention of relapse in times of stress and illness. 10/30/2024 Former smoker (ICD-10 - Z87.891) She is not currently smoking. We have discussed plans for prevention of relapse in times of stress and illness. 11/30/2024 Aspirin allergy (ICD-10 - Z88.8) 08/16/2025 Sciatica, unspecified laterality (ICD-10 - M54.30) She is feeling better now and no change in regimen was necessary. 11/30/2024 Sciatica, unspecified laterality (ICD-10 - M54.30) She is feeling better now and no change in regimen was necessary. 08/16/2025 Environmental allergies (ICD-10 - Z91.09) Her allergies have not bothered her much this summer and she has no symptoms today. 11/30/2024 Unspecified asthma, uncomplicated (ICD-10 - J45.909) She has mild COPD but no significant wheezing today. Plan Of Treatment Pending Test Test Name Order Date PROFILE, FASTING (COMPREHENSIVE METABOLI C) 10/30/2024 PROFILE, FASTING (COMPREHENSIVE METABOLI C) 06/20/2018 PROFILE, FASTING (COMPREHENSIVE METABOLI C) 08/16/2025 PROFILE, FASTING (COMPREHENSIVE METABOLI C) 10/19/2016 PROFILE, FASTING (COMPREHENSIVE METABOLI C) 11/30/2024 PROFILE, FASTING (COMPREHENSIVE METABOLI C) 11/13/2020 LIPID PANEL 11/13/2020 LIPID PANEL 11/19/2015 LIPID PANEL 06/20/2018 LIPID PANEL 08/17/2016 LIPID PANEL 10/19/2016 GGT 11/13/2020 CBC w DIFF 11/13/2020 CBC w DIFF 06/20/2018 CBC w DIFF 08/16/2025 CBC w DIFF 10/19/2016 SED RATE (ESR) 11/13/2020 BONE DENSITY DEXA 10/30/2024 MAMMOGRAM DIGITAL BILATERAL SCREEN 04/19 MAMMOGRAM DIGITAL BILATERAL SCREEN 06/20 HIDA SCAN GB WITH CCK 12/02/2020 CBC WITH AUTO DIFF 10/30/2024 CBC WITH AUTO DIFF 11/30/2024 Complete Blood Count Auto Diff Basic Metabolic Panel 09/08/2025 Lipid Panel 11/30/2024 Lipid Panel 10/30/2024 Lipid Panel 08/16/2025 Lipoprotein A 08/16/2025 Vitamin D 25-OH Total 08/16/2025 MM tomosynthesis screening BI 08/16/2025 XR hand LT min 3V 09/12/2025 Next Appt Details Provider Name:Shabbir Smith , 02/14/2026 04:00:00 PM, [address] [place] [address] [address], [place], [phone], Provider Name:Shabbir Smith , 08/19/2026 04:00:00 PM, [address] [place] [address] [address], [place], [phone], Insurance Providers Payer Name Payer Address Payer Phone Subscriber Number Group Number Insured Name Patient Relationship to Insured Coverage Start Date Coverage End Date [employer] [address] [place] [address] [id number] Val Hickey Self - patient is the insured MEDICARE NGS [address] [facility] [place] [phone] [id number] Val Hickey Self - patient is the insured Medical (General) History Medical History History ICD Code history of hepatitis c infection sciatica hyperlipidemia aspirin allergy [id number] environmental allergies Postmenopausal state former smoker GERD (gastroesophageal reflux disease) K 21.9 Surgical History Surgery Date(Month/Year) [id number] cataract surgery 2024 Tonsils removed 2 C-sections Hospitalization History Reason Date(Month/Year) No history
--- OUTSIDE RECORDS SUMMARY | 2025-09-12 23:04 | XMS_ITS | Clinical Summary ---
Author Organization [address] Address [address] [place] [phone] Phone Care Team Providers Care Customer Success Director Name Role Phone Shabbir Smith MD Primary Care Provider [phone] Allergies Active Allergy Reactions Criticality Noted Date [...] Care Team Description 08/20/2025 Telephone Gastroenterology - [address] [place] [phone] Virgil Salinas MD from Last 3 [...] topic Insurance [employer] MED[employer]ARE ADVANTAGE Care Teams Customer Success Director Relationship Specialty Start Date End Date Shabbir Smith MD [address] [facility] [address] [place] [address] PCP - General Oncology 08/20/25
--- OUTSIDE RECORDS SUMMARY | 2025-09-12 23:04 | XMS_ITS | Patient Health Record ---
[facility] Organization [facility] Address [address] [place] [address] Care Team Providers Care Metalsmith Helper Name Role Phone Shabbir Smith MD Primary Care Provider Unavailab barfield Guillermina Beare Unavailable [phone] Allergies Allergen (clinical drug ingredient) Drug/Non Drug Allergy documented on EMR Reaction Allergy Type Onset Date Status aspirin Aspirin Unknown Drug Allergy Active Reason For Referral No Information Medications Medication SIG (Take, Route, Frequency, Duration) Notes Start Date End Date Status Feldene 20 MG 1 capsule with food Orally Once a day; Duration: 30 day(s) 12/01/2020 Not-Taking Albuterol Sulfate HFA 108 (90 Base) MCG/ACT Inhalation; Duration: 28 Active Cephalexin 500 MG 1 capsule Orally kaley ry 8 hrs; Duration: 10 days Not-Takin g Iodosorb 0.9 % as directed External ly Apply to ulceration daily with dry sterile dressing; Duration: 30 days 09/15/2023 Active Fluticasone Propionate 50 MCG/ACT Nasal; Duration: 60 Active Ciclopirox Olamine 0.77 % 1 application to affected area Externally to feet Twice a day; Duration: 30 days Not-Taking Immunizations Vaccine Route Administration [...] Problem Acquired hammer toe of left foot (7191734169617564 ) Other hammer toe(s) (acquired), left foot (M20.42) Active confirmed Problem Localized, primary osteoarthritis of the ankle and/or foot (987094141) Arthritis of joint of lesser toe, left (M19.072) Active confirmed Problem 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) Active confirmed Response to treatment Plan Of Treatment Pending Test Test Name Order Date X ray : Foot, left 3V 02/09/2022 X ray : Foot, left 3V 09/15/2023 [id number] SKIN/TISSUE 09/15/2023 Insurance Providers Payer Name Payer Address Payer Phone Subscriber Number Group Number Insured Name Patient Relationship to Insured Coverage Start Date Coverage End Date [employer] [address] [place] [address] [id number] Val Hickey Self - patient is the insured Medical (General) History Medical History History ICD Code asthma Back,Hip,and Knee pain Hepatitis Measles Mumps Chicken pox Transfusions Surgical History Surgery Date(Month/Year) 2..86,6.89
--- OUTSIDE RECORDS SUMMARY | 2025-09-12 23:05 | XMS_ITS | Patient Health Record ---
Author Organization [facility] Address [address] [place] [address] Care Team Providers Care Stitch Bonder Machine Operator Helper Name Role Phone Shabbir Kaur Unavailable [phone] Reason For Referral No Information Plan Of Treatment No Information
== END 2025-09-12 16:54 | disposition home or self-care (01) ==
PROVIDERS: PCP Internal Medicine Medical Oncology; Visit Provider Physician Assistant Medical
DX: M79.642 Pain in left hand (principal)

== ENCOUNTER → 2025-09-12 16:35 | Outpatient (BNV) | payer MEDICARE, SELFPAY | PROVIDERS: PCP Internal Medicine Medical Oncology; Visit Provider Radiology Diagnostic Radiology | DX: M19.042 Primary osteoarthritis, left hand (principal) | CPT/HCPCS: 73130 ==